=== PATIENT | male | born 1975 | race Hispanic/Latino ===

== ENCOUNTER 2020-10-06 23:32 | Emergency (ER) | payer SELFPAY ==
[2020-10-07] MEDS ORDERED: Acetaminophen 500 MG TAB ONE (01:17)
[2020-10-07] MEDS ORDERED: Ibuprofen 200 MG TAB ONE (01:17)
== END 2020-10-07 01:22 | disposition home or self-care (01) ==
LOC: ERS 23:32
DX: K04.5 Chronic apical periodontitis (principal); M10.9 Gout, unspecified; I10 Essential (primary) hypertension; J45.909 Unspecified asthma, uncomplicated; E03.9 Hypothyroidism, unspecified; Z87.891 Personal history of nicotine dependence
CPT/HCPCS: 99282

== ENCOUNTER 2020-11-01 19:22 | Emergency (ER) | payer SELFPAY ==
[2020-11-01] MEDS ORDERED: Mag-Al 1200 mg/1200 mg/30 ML UDCUP ONE (21:08)
[2020-11-01] MEDS ORDERED: Lidocaine Viscous Sol 2% 15 ml UD Cup ONE (21:09)
== END 2020-11-01 21:25 | disposition home or self-care (01) ==
LOC: ERS 19:22
DX: K20.90 Esophagitis, unspecified without bleeding (principal); M10.9 Gout, unspecified; I10 Essential (primary) hypertension; J45.909 Unspecified asthma, uncomplicated; Z87.891 Personal history of nicotine dependence
CPT/HCPCS: 71046

== ENCOUNTER 2020-11-03 09:51 | Emergency (ER) | payer SELFPAY ==
[2020-11-03 14:36] LABS: ALT (SGPT) 19 U/L (8-55); AST (SGOT) 32 U/L (5-34); Alkaline Phosphatase 89 U/L (40-110); Anion Gap 15 mmol/L (10-20); BUN (Urea Nitrogen) 7 mg/dL (8.9-20.6); Bilirubin, Total 0.7 mg/dL (0.2-1.2); Calc. Creatinine Clearance 0 mL/min (70-130); Calcium 9.1 mg/dL (7.8-10.44); Carbon Dioxide 27 mmol/L (22-29); Chloride 99 mmol/L (98-107); Globulin 4.7 g/dL (2.4-3.5); Glucose 110 mg/dL (70-105); Potassium 4.4 mmol/L (3.5-5.1); Protein, Total 8.7 g/dL (6.0-8.3); Sodium 137 mmol/L (136-145); Thyroid Stimulating Hormone 2.2091 uIU/mL (0.35-4.94)
[2020-11-03 15:16] LABS: #Eosinphils 0.3 thou/uL (0.0-0.7); #Lymphocytes 1.3 thou/uL (1.20-3.40); #Monocytes 0.5 thou/uL (0.11-0.59); #Neutrophils 2.8 thou/uL (1.40-6.50); %Basophils 0.3 % (0.0-1.0); %Eosinophils 5.6 % (0.0-10.0); %Lymphocytes 26.5 % (21.0-51.0); %Monocytes 10.4 % (0.0-10.0); %Neutrophils 57.2 % (42.0-75.0); Hemoglobin 13.8 g/dL (14.0-18.0); Mean Corpuscular HGB CONC 33.2 g/dL (32.0-36.0); Mean Corpuscular Hemoglobin 29.3 pg (27.0-31.0); Mean Corpuscular Volume 88.1 fL (78.0-98.0); Mean Platelet Volume 7.8 fL (7.4-10.4); Platelet Count 222 thou/uL (130-400); RBC Distribution Width 12.9 % (11.5-14.5); Red Blood Cell (RBC) Count 4.71 mill/uL (4.70-6.10); White Blood Cell (WBC) Count 4.9 thou/uL (4.8-10.8)
== END 2020-11-03 14:21 | disposition home or self-care (01) ==
LOC: ERS 09:51
DX: R22.1 Localized swelling, mass and lump, neck (principal)
CPT/HCPCS: 80053; 84443; 84481; 85025; 99283

== ENCOUNTER 2020-11-10 15:08 | Outpatient (CLI) | payer OTHER | END 2020-11-10 15:09 | disposition home or self-care (01) | LOC: BICULT 15:08 | PROVIDERS: ATTEND Nurse Practitioner Family | DX: E07.9 Disorder of thyroid, unspecified (principal) | CPT/HCPCS: 76536 ==

== ENCOUNTER 2021-03-25 11:35 | Inpatient (IN) | payer SELFPAY ==
[2021-03-25 13:02] LABS: #Eosinphils 0.3 thou/uL (0.0-0.7); #Monocytes 0.5 thou/uL (0.11-0.59); #Neutrophils 5.2 thou/uL (1.40-6.50); %Basophils 0.5 % (0.0-1.0); %Eosinophils 3.9 % (0.0-10.0); %Lymphocytes 24.4 % (21.0-51.0); %Monocytes 6.2 % (0.0-10.0); Mean Corpuscular Hemoglobin 26.2 pg (27.0-31.0); Mean Corpuscular Volume 84.7 fL (78.0-98.0); Mean Platelet Volume 7.1 fL (7.4-10.4); Platelet Count 283 thou/uL (130-400); RBC Distribution Width 12.8 % (11.5-14.5)
[2021-03-25 13:31] LABS: ALT (SGPT) Less than 7 U/L (8-55); AST (SGOT) 14 U/L (5-34); Albumin 3.6 g/dL (3.5-5.0); Alkaline Phosphatase 112 U/L (40-110); Anion Gap 11 mmol/L (10-20); BUN (Urea Nitrogen) 16 mg/dL (8.9-20.6); Bilirubin, Total 0.5 mg/dL (0.2-1.2); Calc. Creatinine Clearance 0 mL/min (70-130); Calcium 8.7 mg/dL (7.8-10.44); Carbon Dioxide 31 mmol/L (22-29); Chloride 104 mmol/L (98-107); Globulin 4.5 g/dL (2.4-3.5); Glucose 64 mg/dL (70-105); Lipase 17 U/L (8-78); Potassium 4.2 mmol/L (3.5-5.1); Protein, Total 8.1 g/dL (6.0-8.3); Sodium 142 mmol/L (136-145)
[2021-03-25] MEDS ORDERED: Ondansetron PF 4 MG/2 ML Vial ONE (14:00)
[2021-03-25 14:02] LABS: Bilirubin Negative (Negative); Blood, Urine Negative (Negative); Clarity Clear (Clear); Glucose, Urine (Dipstick) Normal (Negative); Ketone, Urine Negative (Negative); Leukocyte Negative Leu/uL (Negative); Nitrite Negative (Negative); Protein, Urine (Dipstick) Negative (Neg-Trace); Specific Gravity, Urine 1.003 (1.002-1.036); Urobilinogen Normal mg/dL (Less than 2)
[2021-03-25] MEDS ORDERED: hydrALAZINE 20 MG/ML VIAL ONE (18:04)
[2021-03-25] MEDS ORDERED: Acetaminophen 325 MG TAB PO PRN (19:30)
[2021-03-25] MEDS ORDERED: Ondansetron PF 4 MG/2 ML Vial IVP PRN (19:30)
[2021-03-25] MEDS ORDERED: Ondansetron ODT 4 MG TAB SL PRN (19:30)
[2021-03-25 19:33] VITALS: BMI 38.6
[2021-03-25] MEDS ORDERED: HYDROcodone/Acetaminophen 5/325 mg Tablet PO PRN (20:37)
[2021-03-25] MEDS ORDERED: hydrALAZINE 20 MG/ML VIAL SLOW IVP PRN (20:38)
[2021-03-25] MEDS: Sodium Chloride 0.9% 1,000 ML IV SCH ×2 (22:19→22:20)
[2021-03-26] MEDS: Sodium Chloride 0.9% 1,000 ML IV SCH ×2 (04:54→11:48)
[2021-03-26 06:45] LABS: #Eosinphils 0.3 thou/uL (0.0-0.7); #Lymphocytes 1.8 thou/uL (1.20-3.40); #Monocytes 0.5 thou/uL (0.11-0.59); #Neutrophils 5.1 thou/uL (1.40-6.50); %Basophils 0.3 % (0.0-1.0); %Eosinophils 4.2 % (0.0-10.0); %Lymphocytes 23.1 % (21.0-51.0); %Monocytes 6.1 % (0.0-10.0); %Neutrophils 66.4 % (42.0-75.0); Hemoglobin 10.7 g/dL (14.0-18.0); Mean Corpuscular HGB CONC 32.3 g/dL (32.0-36.0); Mean Corpuscular Hemoglobin 27.5 pg (27.0-31.0); Mean Platelet Volume 7.4 fL (7.4-10.4); Platelet Count 254 thou/uL (130-400); RBC Distribution Width 12.9 % (11.5-14.5); Red Blood Cell (RBC) Count 3.91 mill/uL (4.70-6.10); White Blood Cell (WBC) Count 7.7 thou/uL (4.8-10.8)
[2021-03-26 06:49] LABS: INR-International Normal Ratio 1.1; Prothrombin Time 14.5 sec (12.0-14.7)
[2021-03-26 07:00] LABS: Anion Gap 13 mmol/L (10-20); BUN (Urea Nitrogen) 17 mg/dL (8.9-20.6); Calc. Creatinine Clearance 49 mL/min (70-130); Calcium 8.5 mg/dL (7.8-10.44); Carbon Dioxide 28 mmol/L (22-29); Chloride 108 mmol/L (98-107); Glucose 107 mg/dL (70-105); Potassium 4.7 mmol/L (3.5-5.1); Sodium 144 mmol/L (136-145)
[2021-03-26 11:35] VITALS: BP 157/98; TEMP 97.3
== END 2021-03-26 15:35 | disposition left against medical advice (07) | DRG 841 ==
LOC: ERS 11:35 → SURG B 17:25
PROVIDERS: ADMIT Internal Medicine; ATTEND Internal Medicine
DX: C85.92 Non-Hodgkin lymphoma, unspecified, intrathoracic lymph nodes (principal); N17.9 Acute kidney failure, unspecified; N13.30 Unspecified hydronephrosis; C85.93 Non-Hodgkin lymphoma, unspecified, intra-abdominal lymph nodes; M10.9 Gout, unspecified; G47.33 Obstructive sleep apnea (adult) (pediatric); I95.9 Hypotension, unspecified; I10 Essential (primary) hypertension; E66.9 Obesity, unspecified; Z90.49 Acquired absence of other specified parts of digestive tract; Z68.38 Body mass index [BMI] 38.0-38.9, adult
CPT/HCPCS: 36415; 71275; 74174; 74176; 76705; 80048; 80053; 81003; 83690; 85025; 85610; 96374; 96375; J0360; J2405; J7050

== ENCOUNTER 2021-04-12 07:52 | Inpatient (IN) | payer OTHER, SELFPAY ==
[2021-04-12 08:29] LABS: #Eosinphils 0.3 thou/uL (0.0-0.7); #Lymphocytes 1.5 thou/uL (1.20-3.40); #Monocytes 0.4 thou/uL (0.11-0.59); #Neutrophils 5.2 thou/uL (1.40-6.50); %Eosinophils 4.4 % (0.0-10.0); %Lymphocytes 19.6 % (21.0-51.0); %Monocytes 5.5 % (0.0-10.0); %Neutrophils 70.4 % (42.0-75.0); Hemoglobin 8.9 g/dL (14.0-18.0); Mean Corpuscular HGB CONC 31.3 g/dL (32.0-36.0); Mean Corpuscular Hemoglobin 26.7 pg (27.0-31.0); Mean Corpuscular Volume 85.2 fL (78.0-98.0); Mean Platelet Volume 6.8 fL (7.4-10.4); Platelet Count 279 thou/uL (130-400); RBC Distribution Width 14.2 % (11.5-14.5); Red Blood Cell (RBC) Count 3.32 mill/uL (4.70-6.10); White Blood Cell (WBC) Count 7.4 thou/uL (4.8-10.8)
[2021-04-12] MEDS ORDERED: Heparin 10,000 UNITS/ 10 ML VIAL ONE (08:44)
[2021-04-12 08:50] LABS: ALT (SGPT) Less than 7 U/L (8-55); AST (SGOT) 13 U/L (5-34); Albumin 3.4 g/dL (3.5-5.0); Alkaline Phosphatase 79 U/L (40-110); Anion Gap 16 mmol/L (10-20); BUN (Urea Nitrogen) 78 mg/dL (8.9-20.6); Bilirubin, Total 0.5 mg/dL (0.2-1.2); Calc. Creatinine Clearance 0 mL/min (70-130); Calcium 8.5 mg/dL (7.8-10.44); Carbon Dioxide 21 mmol/L (22-29); Chloride 105 mmol/L (98-107); Globulin 4.1 g/dL (2.4-3.5); Glucose 87 mg/dL (70-105); Lipase 25 U/L (8-78); Protein, Total 7.5 g/dL (6.0-8.3); Sodium 135 mmol/L (136-145)
[2021-04-12] MEDS ORDERED: Dextrose 50% Abboject 50 ML SYRINGE ONE (09:07)
[2021-04-12] MEDS ORDERED: Morphine 4 MG/ML VIAL ONE (09:07)
[2021-04-12] MEDS ORDERED: Ondansetron PF 4 MG/2 ML Vial ONE (09:07)
[2021-04-12] MEDS ORDERED: Sodium Bicarbonate 2.5 MEQ/5 ML VIAL ONE (09:12)
[2021-04-12 09:42] LABS: Phosphorus 7.5 mg/dL (2.3-4.7)
[2021-04-12 09:45] LABS: Magnesium 2.7 mg/dL (1.6-2.6)
[2021-04-12] MEDS ORDERED: Calcium Gluc 4.6 MEQ/10 ML (100 MG/ML) ONE ×2 (09:46→09:49)
[2021-04-12] MEDS ORDERED: Insulin Regular 300 UNITS/3 ML VIAL ONE ×2 (09:46→09:48)
[2021-04-12] MEDS ORDERED: Albuterol 200 PUFF (6.7GM INHALER) ONE (10:58)
[2021-04-12] MEDS ORDERED: Albuterol Sulfate 1.25 MG/3 ML NEB ONE (11:10)
[2021-04-12] MEDS ORDERED: Albuterol Sulfate 2.5 mg/0.5 ml Neb ONE (11:10)
[2021-04-12 11:11] LABS: HBSAg Index 0.26 S/CO (0-0.99); Hep B Surf Ag Non-Reactive S/CO (NonReactive)
[2021-04-12 11:12] LABS: Hep B Core Total Ab Non-Reactive (NonReactive); Hep B Core Total Index 0.09 S/CO (0-0.79); Hep B Surf Ag Non-Reactive S/CO (NonReactive); Hep C IgG Ab Non-Reactive (NonReactive)
[2021-04-12 11:31] LABS: HBSAB Concentration 209.09 mIU/mL; Hep B Surf AB Reactive (NonReactive)
[2021-04-12] MEDS ORDERED: Acetaminophen 325 MG TAB PO PRN (11:31)
[2021-04-12] MEDS ORDERED: FLU VACC QS2021-22(6MOS UP)/PF 60 MCG/0.5 ML SYRINGE IM ONE (14:15)
[2021-04-12] MEDS: Heparin 5,000 UNITS/ML VIAL SC SCH ×2 (15:33→20:51)
[2021-04-12 16:34] LABS: Bacteria/HPF None Seen HPF (None Seen); Bilirubin Negative (Negative); Blood, Urine Trace (Negative); Clarity Clear (Clear); Glucose, Urine (Dipstick) Normal (Negative); Ketone, Urine Negative (Negative); Leukocyte Negative Leu/uL (Negative); Nitrite Negative (Negative); Protein, Urine (Dipstick) 10 mg/dL (Neg-Trace); RBC/HPF None Seen HPF (0-3); Specific Gravity, Urine 1.007 (1.002-1.036); Squamous Epithelial 0-3 HPF (0-3); Urobilinogen Normal mg/dL (Less than 2); WBC/HPF 0-3 HPF (0-3); pH, Urine 5.5 (5.0-9.0)
[2021-04-12 16:35] LABS: Urine Culture Reflex No No
[2021-04-12 16:54] LABS: Creatinine, Urine 72.95 mg/dL (63-166)
[2021-04-12 20:36] LABS: SARS-CoV-2 NAA Rapid Test Not Detected (NotDetected)
[2021-04-13 04:08] LABS: #Eosinphils 0.3 thou/uL (0.0-0.7); #Lymphocytes 1.5 thou/uL (1.20-3.40); #Monocytes 0.5 thou/uL (0.11-0.59); #Neutrophils 4.4 thou/uL (1.40-6.50); %Basophils 0.2 % (0.0-1.0); %Eosinophils 3.8 % (0.0-10.0); %Lymphocytes 22.4 % (21.0-51.0); %Monocytes 7.3 % (0.0-10.0); %Neutrophils 66.2 % (42.0-75.0); Hemoglobin 8.1 g/dL (14.0-18.0); Mean Corpuscular HGB CONC 31.7 g/dL (32.0-36.0); Mean Corpuscular Hemoglobin 27.4 pg (27.0-31.0); Mean Corpuscular Volume 86.4 fL (78.0-98.0); Mean Platelet Volume 7.1 fL (7.4-10.4); Platelet Count 219 thou/uL (130-400); RBC Distribution Width 14.1 % (11.5-14.5); Red Blood Cell (RBC) Count 2.94 mill/uL (4.70-6.10); White Blood Cell (WBC) Count 6.7 thou/uL (4.8-10.8)
[2021-04-13 04:32] LABS: ALT (SGPT) Less than 7 U/L (8-55); AST (SGOT) 13 U/L (5-34); Albumin 3.2 g/dL (3.5-5.0); Alkaline Phosphatase 79 U/L (40-110); Anion Gap 16 mmol/L (10-20); BUN (Urea Nitrogen) 64 mg/dL (8.9-20.6); Bilirubin, Total 0.5 mg/dL (0.2-1.2); Calc. Creatinine Clearance 12 mL/min (70-130); Calcium 8.1 mg/dL (7.8-10.44); Carbon Dioxide 24 mmol/L (22-29); Chloride 105 mmol/L (98-107); Globulin 3.8 g/dL (2.4-3.5); Glucose 85 mg/dL (70-105); Sodium 138 mmol/L (136-145)
[2021-04-13 04:41] LABS: Potassium 6.6 mmol/L (3.5-5.1)
[2021-04-13] MEDS ORDERED: Calcium Gluc 4.6 MEQ/10 ML (100 MG/ML) SLOW IVP SCH (05:30)
[2021-04-13] MEDS ORDERED: Dextrose 50% Abboject 50 ML SYRINGE SLOW IVP SCH (05:30)
[2021-04-13] MEDS ORDERED: Insulin Regular 300 UNITS/3 ML VIAL IVP SCH (05:30)
[2021-04-13] MEDS: Heparin 5,000 UNITS/ML VIAL SC SCH ×3 (08:06→21:37)
[2021-04-13] MEDS ORDERED: Heparin 10,000 UNITS/ 10 ML VIAL ONE (09:06)
[2021-04-13] MEDS ORDERED: Allopurinol 100 MG TAB PO SCH (15:30)
[2021-04-13] MEDS: Sevelamer Carbonate 800 MG TAB PO SCH (16:58)
[2021-04-14 04:34] LABS: Hemoglobin 8.2 g/dL (14.0-18.0); Mean Corpuscular HGB CONC 31.9 g/dL (32.0-36.0); Mean Corpuscular Hemoglobin 27.4 pg (27.0-31.0); Mean Platelet Volume 7.1 fL (7.4-10.4); Platelet Count 210 thou/uL (130-400); White Blood Cell (WBC) Count 6.1 thou/uL (4.8-10.8)
[2021-04-14 04:54] LABS: Anion Gap 14 mmol/L (10-20); BUN (Urea Nitrogen) 47 mg/dL (8.9-20.6); BUN/Creatinine Ratio 3.67; Calc. Creatinine Clearance 14 mL/min (70-130); Calcium 8.2 mg/dL (7.8-10.44); Carbon Dioxide 25 mmol/L (22-29); Chloride 103 mmol/L (98-107); Glucose 83 mg/dL (70-105); Iron 25 ug/dL (65-175); Iron Binding Capacity, Total 191 mcg/dL (261-462); Phosphorus 7.1 mg/dL (2.3-4.7); Potassium 5.3 mmol/L (3.5-5.1); Sodium 137 mmol/L (136-145)
[2021-04-14] MEDS: Sevelamer Carbonate 800 MG TAB PO SCH ×3 (07:53→17:26)
[2021-04-14] MEDS: Allopurinol 100 MG TAB PO SCH (07:53)
[2021-04-14] MEDS: Heparin 5,000 UNITS/ML VIAL SC SCH ×2 (07:53→12:52)
[2021-04-14] MEDS ORDERED: Heparin 10,000 UNITS/ 10 ML VIAL ONE (09:06)
[2021-04-14] MEDS: Iron, Sodium Ferric Gluconate 250 MG in Sodium Chloride 0.9% 250 ML 250 ML IVPB SCH (10:40)
[2021-04-15 05:25] LABS: Albumin 3.1 g/dL (3.5-5.0); Anion Gap 14 mmol/L (10-20); BUN (Urea Nitrogen) 28 mg/dL (8.9-20.6); BUN/Creatinine Ratio 2.82; Calc. Creatinine Clearance 17 mL/min (70-130); Calcium 8.3 mg/dL (7.8-10.44); Carbon Dioxide 27 mmol/L (22-29); Chloride 100 mmol/L (98-107); Glucose 86 mg/dL (70-105); Potassium 4.6 mmol/L (3.5-5.1); Sodium 136 mmol/L (136-145)
[2021-04-15 08:30] LABS: #Eosinphils 0.3 thou/uL (0.0-0.7); #Lymphocytes 1.1 thou/uL (1.20-3.40); #Monocytes 0.3 thou/uL (0.11-0.59); %Basophils 0.3 % (0.0-1.0); %Eosinophils 5.6 % (0.0-10.0); %Lymphocytes 19.4 % (21.0-51.0); %Monocytes 5.7 % (0.0-10.0); %Neutrophils 68.9 % (42.0-75.0); Hemoglobin 8.7 g/dL (14.0-18.0); Mean Corpuscular Hemoglobin 27.4 pg (27.0-31.0); Mean Corpuscular Volume 85.6 fL (78.0-98.0); Mean Platelet Volume 6.8 fL (7.4-10.4); Platelet Count 189 thou/uL (130-400); RBC Distribution Width 14.3 % (11.5-14.5); Red Blood Cell (RBC) Count 3.18 mill/uL (4.70-6.10); White Blood Cell (WBC) Count 5.8 thou/uL (4.8-10.8)
[2021-04-15 08:32] LABS: INR-International Normal Ratio 1.1; Prothrombin Time 14.4 sec (12.0-14.7)
[2021-04-15 08:33] LABS: PTT 46.7 sec (22.9-36.1)
[2021-04-15] MEDS: Sevelamer Carbonate 800 MG TAB PO SCH ×3 (08:45→18:11)
[2021-04-15] MEDS: Allopurinol 100 MG TAB PO SCH (08:46)
[2021-04-15] MEDS: Iron, Sodium Ferric Gluconate 250 MG in Sodium Chloride 0.9% 250 ML 250 ML IVPB SCH ×2 (09:25→18:11)
[2021-04-15] MEDS ORDERED: Fentanyl 250 MCG/5 ML VIAL ONE (13:22)
[2021-04-15] MEDS ORDERED: Ketamine 50 MG/ML (10ML VIAL) ONE (14:08)
[2021-04-15] MEDS ORDERED: SUGAMMADEX SODIUM 200 MG/2 ML VIAL ONE (14:09)
[2021-04-15] MEDS ORDERED: Midazolam HCl 2 mg/2 ml Vial ONE (14:09)
[2021-04-15] MEDS ORDERED: PROPOFOL 200 MG/20 ML VIAL ONE (14:11)
[2021-04-15] MEDS ORDERED: Lidocaine 1% PF 5 ML VIAL ONE (14:11)
[2021-04-15] MEDS ORDERED: Glycopyrrolate 0.2 MG/ML 5 ML SYRINGE ONE (14:11)
[2021-04-15] MEDS ORDERED: PHENYLEPHRINE-NS 100 MCG/ML 10 ML SYRINGE ONE (14:11)
[2021-04-15] MEDS ORDERED: Ondansetron HCl/PF 4 MG/2 ML Vial IVP PRN (15:34)
[2021-04-15] MEDS ORDERED: Promethazine HCl 25 MG/ML VIAL IVPB PRN (15:34)
[2021-04-15] MEDS ORDERED: Promethazine HCl 25 MG/ML VIAL IM PRN (15:34)
[2021-04-15] MEDS ORDERED: Fentanyl 100 MCG/2 ML VIAL ONE (15:53)
[2021-04-15] MEDS ORDERED: Labetalol HCl 100 MG/20 ML VIAL ONE (15:59)
[2021-04-15] MEDS ORDERED: hydrALAZINE 20 MG/ML VIAL ONE (16:30)
[2021-04-16 05:53] LABS: Albumin 3.4 g/dL (3.5-5.0); Anion Gap 16 mmol/L (10-20); BUN (Urea Nitrogen) 34 mg/dL (8.9-20.6); BUN/Creatinine Ratio 3.11; Calc. Creatinine Clearance 16 mL/min (70-130); Carbon Dioxide 27 mmol/L (22-29); Chloride 104 mmol/L (98-107); Glucose 97 mg/dL (70-105); Phosphorus 6.2 mg/dL (2.3-4.7); Potassium 4.6 mmol/L (3.5-5.1); Sodium 142 mmol/L (136-145)
[2021-04-16 08:16] LABS: HBSAg Index 0.17 S/CO (0-0.99); Hep B Core Total Ab Non-Reactive (NonReactive); Hep B Surf Ag Non-Reactive S/CO (NonReactive); Hep C IgG Ab Non-Reactive (NonReactive); Hep C Index 0.09 S/CO (0-0.79)
[2021-04-16 08:33] LABS: HBSAB Concentration 160.48 mIU/mL; Hep B Surf AB Reactive (NonReactive)
[2021-04-16] MEDS: Allopurinol 100 MG TAB PO SCH (09:41)
[2021-04-16] MEDS: Sevelamer Carbonate 800 MG TAB PO SCH ×3 (09:41→17:10)
[2021-04-16] MEDS ORDERED: Heparin 10,000 UNITS/ 10 ML VIAL ONE (10:45)
[2021-04-16] MEDS: Iron, Sodium Ferric Gluconate 250 MG in Sodium Chloride 0.9% 250 ML 250 ML IVPB SCH (12:34)
[2021-04-16] MEDS ORDERED: Iothalamate Meglumine 60% 50 ML VIAL FS ONE (16:41)
[2021-04-16] MEDS ORDERED: Fentanyl 100 MCG/2 ML VIAL ONE (21:05)
[2021-04-16] MEDS ORDERED: Succinylcholine 200 MG/10 ml SYRINGE FS ONE (21:15)
[2021-04-16] MEDS ORDERED: Ondansetron PF 4 MG/2 ML Vial ONE (21:15)
[2021-04-16] MEDS ORDERED: Rocuronium Bromide 10 MG/ML (10ML VIAL) ONE (21:15)
[2021-04-16] MEDS ORDERED: PROPOFOL 200 MG/20 ML VIAL ONE (21:15)
[2021-04-16] MEDS ORDERED: Dexamethasone 20 MG/5 ML VIAL ONE (21:15)
[2021-04-16] MEDS ORDERED: Lidocaine 1% PF 5 ML VIAL ONE (21:15)
[2021-04-16] MEDS ORDERED: PHENYLEPHRINE-NS 100 MCG/ML 10 ML SYRINGE ONE (21:15)
[2021-04-16] MEDS ORDERED: Esmolol 100 MG/10 ML VIAL ONE (21:15)
[2021-04-16] MEDS ORDERED: Levofloxacin 500 mg/D5W 100 ml Premix Bag ONE (21:29)
[2021-04-16] MEDS ORDERED: B & O 30 MG SUPP ONE (21:55)
[2021-04-16] MEDS ORDERED: Labetalol HCl 100 MG/20 ML VIAL ONE (22:11)
[2021-04-16] MEDS ORDERED: Ondansetron HCl/PF 4 MG/2 ML Vial IVP PRN (22:13)
[2021-04-16] MEDS ORDERED: Promethazine HCl 25 MG/ML VIAL IVPB PRN (22:13)
[2021-04-16] MEDS ORDERED: Promethazine HCl 25 MG/ML VIAL IM PRN (22:13)
[2021-04-17] MEDS: hydrALAZINE 20 MG/ML VIAL SLOW IVP PRN ×2 (01:17→22:19)
[2021-04-17] MEDS ORDERED: HYDROcodone/Acetaminophen 10/325 mg Tablet PO PRN (01:27)
[2021-04-17] MEDS ORDERED: HYDROcodone/Acetaminophen 5/325 mg Tablet PO PRN (01:27)
[2021-04-17 06:22] LABS: Albumin 3.8 g/dL (3.5-5.0); Anion Gap 17 mmol/L (10-20); BUN (Urea Nitrogen) 24 mg/dL (8.9-20.6); BUN/Creatinine Ratio 3.99; Calc. Creatinine Clearance 29 mL/min (70-130); Calcium 9.7 mg/dL (7.8-10.44); Carbon Dioxide 23 mmol/L (22-29); Chloride 106 mmol/L (98-107); Glucose 118 mg/dL (70-105); Phosphorus 3.5 mg/dL (2.3-4.7); Potassium 5.2 mmol/L (3.5-5.1); Sodium 141 mmol/L (136-145)
[2021-04-17] MEDS: Sevelamer Carbonate 800 MG TAB PO SCH ×3 (08:48→16:43)
[2021-04-17] MEDS: Allopurinol 100 MG TAB PO SCH (08:48)
[2021-04-17] MEDS: Ondansetron PF 4 MG/2 ML Vial IVP PRN ×2 (08:54→16:42)
[2021-04-17] MEDS ORDERED: Polyethylene Glycol 3350 17 GM Packet PO SCH (09:00)
[2021-04-17] MEDS: Senokot S 8.6-50 MG TAB PO SCH ×2 (09:58→22:20)
[2021-04-17] MEDS ORDERED: Amlodipine 5 MG TAB PO SCH (14:30)
[2021-04-17 16:54] LABS: Anion Gap 17 mmol/L (10-20); BUN (Urea Nitrogen) 27 mg/dL (8.9-20.6); Calc. Creatinine Clearance 29 mL/min (70-130); Calcium 9.6 mg/dL (7.8-10.44); Carbon Dioxide 25 mmol/L (22-29); Chloride 106 mmol/L (98-107); Glucose 97 mg/dL (70-105); Potassium 4.5 mmol/L (3.5-5.1); Sodium 143 mmol/L (136-145)
[2021-04-18] MEDS: Ondansetron PF 4 MG/2 ML Vial IVP PRN (03:45)
[2021-04-18] MEDS ORDERED: Sodium Chloride 0.9% 1,000 ML IV SCH (06:30)
[2021-04-18] MEDS: Amlodipine 10 MG TAB PO SCH (08:55)
[2021-04-18] MEDS: Senokot S 8.6-50 MG TAB PO SCH ×2 (08:55→20:09)
[2021-04-18] MEDS: Allopurinol 100 MG TAB PO SCH (08:55)
[2021-04-18] MEDS: Carvedilol 3.125 MG TAB PO SCH ×2 (08:55→17:48)
[2021-04-18] MEDS: Sevelamer Carbonate 800 MG TAB PO SCH ×2 (08:56→11:59)
[2021-04-18 11:00] LABS: Hemoglobin 10.5 g/dL (14.0-18.0); Mean Corpuscular HGB CONC 31.3 g/dL (32.0-36.0); Mean Corpuscular Hemoglobin 27.5 pg (27.0-31.0); Platelet Count 228 thou/uL (130-400); RBC Distribution Width 14.8 % (11.5-14.5); Red Blood Cell (RBC) Count 3.81 mill/uL (4.70-6.10); White Blood Cell (WBC) Count 8.2 thou/uL (4.8-10.8)
[2021-04-18 14:40] LABS: Albumin 3.8 g/dL (3.5-5.0); Anion Gap 13 mmol/L (10-20); BUN (Urea Nitrogen) 29 mg/dL (8.9-20.6); Calc. Creatinine Clearance 32 mL/min (70-130); Calcium 9.7 mg/dL (7.8-10.44); Carbon Dioxide 28 mmol/L (22-29); Chloride 104 mmol/L (98-107); Glucose 98 mg/dL (70-105); Phosphorus 3.8 mg/dL (2.3-4.7); Potassium 4.1 mmol/L (3.5-5.1); Sodium 141 mmol/L (136-145)
[2021-04-18 14:56] LABS: Chloride 104 mmol/L (98-107); Potassium 4.3 mmol/L (3.5-5.1); Sodium 143 mmol/L (136-145)
[2021-04-18 14:57] LABS: Calcium 9.7 mg/dL (7.8-10.44); Glucose 109 mg/dL (70-105)
[2021-04-18 14:59] LABS: Anion Gap 16 mmol/L (10-20); Carbon Dioxide 27 mmol/L (22-29)
[2021-04-18 15:00] LABS: Calc. Creatinine Clearance 32 mL/min (70-130); Phosphorus 4.3 mg/dL (2.3-4.7)
[2021-04-18 15:01] LABS: BUN (Urea Nitrogen) 29 mg/dL (8.9-20.6); BUN/Creatinine Ratio 5.85
[2021-04-18 18:48] LABS: Anion Gap 14 mmol/L (10-20); BUN (Urea Nitrogen) 32 mg/dL (8.9-20.6); Calc. Creatinine Clearance 35 mL/min (70-130); Calcium 9.3 mg/dL (7.8-10.44); Carbon Dioxide 26 mmol/L (22-29); Chloride 103 mmol/L (98-107); Glucose 85 mg/dL (70-105); Potassium 4.1 mmol/L (3.5-5.1); Sodium 139 mmol/L (136-145)
[2021-04-19] MEDS: Polyethylene Glycol 3350 17 GM Packet PO PRN (08:35)
[2021-04-19] MEDS: Allopurinol 100 MG TAB PO SCH (08:35)
[2021-04-19] MEDS: Senokot S 8.6-50 MG TAB PO SCH ×2 (08:35→20:10)
[2021-04-19] MEDS: Amlodipine 10 MG TAB PO SCH (08:36)
[2021-04-19] MEDS: Carvedilol 3.125 MG TAB PO SCH ×2 (08:36→17:12)
[2021-04-19 10:51] LABS: Albumin 3.7 g/dL (3.5-5.0); Anion Gap 12 mmol/L (10-20); BUN (Urea Nitrogen) 30 mg/dL (8.9-20.6); BUN/Creatinine Ratio 7.65; Calc. Creatinine Clearance 40 mL/min (70-130); Calcium 9.5 mg/dL (7.8-10.44); Carbon Dioxide 29 mmol/L (22-29); Chloride 101 mmol/L (98-107); Glucose 151 mg/dL (70-105); Phosphorus 3.8 mg/dL (2.3-4.7); Potassium 3.7 mmol/L (3.5-5.1); Sodium 138 mmol/L (136-145)
[2021-04-19 11:13] LABS: Fungus Stain Final report (.)
[2021-04-19 13:13] LABS: Fungus Stain Final report (.)
[2021-04-20 06:11] LABS: #Eosinphils 0.5 thou/uL (0.0-0.7); #Lymphocytes 2.1 thou/uL (1.20-3.40); #Monocytes 0.6 thou/uL (0.11-0.59); #Neutrophils 5.3 thou/uL (1.40-6.50); %Basophils 0.2 % (0.0-1.0); %Eosinophils 5.4 % (0.0-10.0); %Lymphocytes 24.9 % (21.0-51.0); %Monocytes 7.5 % (0.0-10.0); Hemoglobin 10.7 g/dL (14.0-18.0); Mean Corpuscular HGB CONC 30.7 g/dL (32.0-36.0); Mean Corpuscular Hemoglobin 26.4 pg (27.0-31.0); Mean Corpuscular Volume 86.1 fL (78.0-98.0); Mean Platelet Volume 6.8 fL (7.4-10.4); Platelet Count 207 thou/uL (130-400); RBC Distribution Width 14.8 % (11.5-14.5); Red Blood Cell (RBC) Count 4.06 mill/uL (4.70-6.10); White Blood Cell (WBC) Count 8.5 thou/uL (4.8-10.8)
[2021-04-20 06:35] LABS: Albumin 3.9 g/dL (3.5-5.0); Anion Gap 15 mmol/L (10-20); BUN (Urea Nitrogen) 32 mg/dL (8.9-20.6); BUN/Creatinine Ratio 9.47; Calc. Creatinine Clearance 46 mL/min (70-130); Calcium 9.2 mg/dL (7.8-10.44); Carbon Dioxide 28 mmol/L (22-29); Chloride 100 mmol/L (98-107); Glucose 126 mg/dL (70-105); Phosphorus 3.3 mg/dL (2.3-4.7); Potassium 3.8 mmol/L (3.5-5.1); Sodium 139 mmol/L (136-145)
[2021-04-20] MEDS: Senokot S 8.6-50 MG TAB PO SCH ×2 (08:37→20:24)
[2021-04-20] MEDS: Amlodipine 10 MG TAB PO SCH (08:37)
[2021-04-20] MEDS: Allopurinol 100 MG TAB PO SCH (08:37)
[2021-04-20] MEDS: Polyethylene Glycol 3350 17 GM Packet PO PRN (08:40)
[2021-04-20] MEDS: Carvedilol 3.125 MG TAB PO SCH ×2 (08:40→16:49)
[2021-04-20] MEDS ORDERED: Bisacodyl 10 MG SUPP PR PRN (12:05)
[2021-04-20 14:50] LABS: SARS-CoV-2 PCR by NAA Not Detected (NotDetected)
[2021-04-21 06:37] LABS: Albumin 3.8 g/dL (3.5-5.0); Anion Gap 12 mmol/L (10-20); BUN (Urea Nitrogen) 31 mg/dL (8.9-20.6); BUN/Creatinine Ratio 11.27; Calc. Creatinine Clearance 57 mL/min (70-130); Calcium 9.3 mg/dL (7.8-10.44); Carbon Dioxide 29 mmol/L (22-29); Chloride 100 mmol/L (98-107); Glucose 118 mg/dL (70-105); Phosphorus 3.5 mg/dL (2.3-4.7); Potassium 3.9 mmol/L (3.5-5.1); Sodium 137 mmol/L (136-145)
[2021-04-21] MEDS: Amlodipine 10 MG TAB PO SCH (08:37)
[2021-04-21] MEDS: Senokot S 8.6-50 MG TAB PO SCH ×2 (08:37→20:04)
[2021-04-21] MEDS: Allopurinol 100 MG TAB PO SCH (08:37)
[2021-04-21] MEDS: Carvedilol 3.125 MG TAB PO SCH ×2 (08:37→16:52)
[2021-04-21 11:44] VITALS: BMI 35.9
[2021-04-21] MEDS: Polyethylene Glycol 3350 17 GM Packet PO PRN (20:04)
[2021-04-22 06:34] LABS: #Basophils 0.1 thou/uL (0.0-0.2); #Eosinphils 0.5 thou/uL (0.0-0.7); #Lymphocytes 2.1 thou/uL (1.20-3.40); #Monocytes 0.7 thou/uL (0.11-0.59); #Neutrophils 4.9 thou/uL (1.40-6.50); %Basophils 0.9 % (0.0-1.0); %Eosinophils 5.5 % (0.0-10.0); %Lymphocytes 26.1 % (21.0-51.0); %Monocytes 8.3 % (0.0-10.0); %Neutrophils 59.2 % (42.0-75.0); Hemoglobin 10.2 g/dL (14.0-18.0); Mean Corpuscular HGB CONC 32.4 g/dL (32.0-36.0); Mean Corpuscular Hemoglobin 27.4 pg (27.0-31.0); Mean Corpuscular Volume 84.5 fL (78.0-98.0); Mean Platelet Volume 7.4 fL (7.4-10.4); Platelet Count 222 thou/uL (130-400); RBC Distribution Width 14.8 % (11.5-14.5); Red Blood Cell (RBC) Count 3.72 mill/uL (4.70-6.10); White Blood Cell (WBC) Count 8.2 thou/uL (4.8-10.8)
[2021-04-22 06:52] LABS: Albumin 3.6 g/dL (3.5-5.0); Anion Gap 14 mmol/L (10-20); BUN (Urea Nitrogen) 30 mg/dL (8.9-20.6); Calc. Creatinine Clearance 63 mL/min (70-130); Calcium 9.4 mg/dL (7.8-10.44); Carbon Dioxide 27 mmol/L (22-29); Chloride 98 mmol/L (98-107); Glucose 110 mg/dL (70-105); Phosphorus 3.2 mg/dL (2.3-4.7); Potassium 3.6 mmol/L (3.5-5.1); Sodium 135 mmol/L (136-145)
[2021-04-22] MEDS: Amlodipine 10 MG TAB PO SCH (08:31)
[2021-04-22] MEDS: Allopurinol 100 MG TAB PO SCH (08:31)
[2021-04-22] MEDS: Carvedilol 3.125 MG TAB PO SCH ×2 (08:31→16:14)
[2021-04-22] MEDS: Senokot S 8.6-50 MG TAB PO SCH ×2 (08:31→20:55)
[2021-04-22 16:13] LABS: Kappa Lambda Light Chain Ratio 2.18 (0.26-1.65); Kappa Light Chains 141.8 mg/L (3.3-19.4)
[2021-04-22 21:38] LABS: A/G Ratio 0.7 (0.7-1.7); Albumin 3.2 g/dL (2.9-4.4); Alpha 1 0.3 g/dL (0.0-0.4); Beta 1.4 g/dL (0.7-1.3); Gamma 2.2 g/dL (0.4-1.8); Globulin, Total 4.9 g/dL (2.2-3.9); M-Spike Not Observed g/dL (Not Observed)
[2021-04-23 07:08] LABS: Albumin 3.7 g/dL (3.5-5.0); Anion Gap 17 mmol/L (10-20); BUN (Urea Nitrogen) 26 mg/dL (8.9-20.6); BUN/Creatinine Ratio 11.11; Calc. Creatinine Clearance 67 mL/min (70-130); Calcium 9.1 mg/dL (7.8-10.44); Carbon Dioxide 26 mmol/L (22-29); Chloride 99 mmol/L (98-107); Glucose 110 mg/dL (70-105); Phosphorus 3.5 mg/dL (2.3-4.7); Potassium 3.9 mmol/L (3.5-5.1); Sodium 138 mmol/L (136-145)
[2021-04-23] MEDS: Senokot S 8.6-50 MG TAB PO SCH (07:39)
[2021-04-23] MEDS: Allopurinol 100 MG TAB PO SCH (07:39)
[2021-04-23] MEDS: Amlodipine 10 MG TAB PO SCH (07:39)
[2021-04-23] MEDS: Carvedilol 3.125 MG TAB PO SCH ×2 (07:39→15:25)
[2021-04-23 12:11] LABS: Beta-2-Microglobulin 5.9 mg/L (0.6-2.4)
[2021-04-23] MEDS ORDERED: Sodium Bicarbonate 2.5 MEQ/5 ML VIAL ONE (12:18)
[2021-04-23 14:14] LABS: IFE-Serum Interpretation Note: (.); IgA - Total IgA (Sendout) 491 mg/dL (90-386); Immunoglobulin - G (Sendout) 2079 mg/dL (603-1613); Immunoglobulin - M (Sendout) 132 mg/dL (20-172)
[2021-04-23 15:27] VITALS: BP 125/80; TEMP 97.8
[2021-05-13 12:40] LABS: Fungus Culture Final report (.)
[2021-05-13 12:40] LABS: Fungus Culture Final report (.)
== END 2021-04-23 15:38 | disposition home or self-care (01) | DRG 661 ==
LOC: ERS 07:52 → IMCU/EMU 12:56 → 2SW 04-14 19:23 → SURG B 04-17 21:12 → T4-A 04-20 17:23
PROVIDERS: ADMIT Internal Medicine; ATTEND Internal Medicine
PROC: 5A1D70Z Performance of Urinary Filtration, Intermittent, Less than 6 Hours Per Day (ICD-10-PCS; 2021-04-12)
PROC: 07D78ZX Extraction of Thorax Lymphatic, Via Natural or Artificial Opening Endoscopic, Diagnostic (ICD-10-PCS; principal; 2021-04-15)
PROC: 0B9J7ZX Drainage of Left Lower Lung Lobe, Via Natural or Artificial Opening, Diagnostic (ICD-10-PCS; 2021-04-15)
PROC: 0B9F7ZX Drainage of Right Lower Lung Lobe, Via Natural or Artificial Opening, Diagnostic (ICD-10-PCS; 2021-04-15)
PROC: 0T788DZ Dilation of Bilateral Ureters with Intraluminal Device, Via Natural or Artificial Opening Endoscopic (ICD-10-PCS; 2021-04-16)
PROC: BT141ZZ Fluoroscopy of Kidneys, Ureters and Bladder using Low Osmolar Contrast (ICD-10-PCS; 2021-04-16)
PROC: 07DR3ZX Extraction of Iliac Bone Marrow, Percutaneous Approach, Diagnostic (ICD-10-PCS; 2021-04-23)
DX: N17.9 Acute kidney failure, unspecified (principal); E87.5 Hyperkalemia; Z20.822 Contact with and (suspected) exposure to COVID-19; M10.9 Gout, unspecified; G47.33 Obstructive sleep apnea (adult) (pediatric); E83.39 Other disorders of phosphorus metabolism; N13.30 Unspecified hydronephrosis; R19.00 Intra-abdominal and pelvic swelling, mass and lump, unspecified site; R22.2 Localized swelling, mass and lump, trunk; F32.A Depression, unspecified; E66.9 Obesity, unspecified; D63.1 Anemia in chronic kidney disease; N18.9 Chronic kidney disease, unspecified; I12.9 Hypertensive chronic kidney disease with stage 1 through stage 4 chronic kidney disease, or unspecified chronic kidney disease; R59.1 Generalized enlarged lymph nodes; K59.00 Constipation, unspecified; Z88.8 Allergy status to other drugs, medicaments and biological substances; Z90.49 Acquired absence of other specified parts of digestive tract; Z87.891 Personal history of nicotine dependence; Z82.5 Family history of asthma and other chronic lower respiratory diseases; Z68.35 Body mass index [BMI] 35.0-35.9, adult; Z80.1 Family history of malignant neoplasm of trachea, bronchus and lung
CPT/HCPCS: 20225; 36415; 36556; 74176; 74420; 77012; 80053; 80069; 81001; 82232; 82550; 82570; 82728; 83540; 83550; 83690; 83735; 83883; 84100; 84156; 84165; 84300; 84540; 84550; 85025; 85027; 85097; 85610; 85730; 86334; 86704; 86706; 86803; 87070; 87102; 87116; 87205; 87206; 87340; 88112; 88121; 88173; 88184; 88237; 88305; 88311; 88313; 88341; 88342; 90935; 93005; 94660; 96374; 96375; C2617; G0257; J0360; J1100; J1644; J1815; J1956; J2001; J2250; J2270; J2405; J2704; J2916; J3010; J7050; J7611; Q9961; U0002; U0003; U0005

== ENCOUNTER 2021-05-06 12:17 | Outpatient (CLI) | payer OTHER | END 2021-05-06 12:18 | disposition home or self-care (01) | LOC: PET 12:17 | PROVIDERS: ATTEND Internal Medicine Hematology & Oncology | DX: R59.0 Localized enlarged lymph nodes (principal); C85.90 Non-Hodgkin lymphoma, unspecified, unspecified site; N13.5 Crossing vessel and stricture of ureter without hydronephrosis | CPT/HCPCS: 78815; A9552 ==

== ENCOUNTER 2021-05-13 10:03 | Inpatient (IN) | payer OTHER ==
[2021-05-13] MEDS ORDERED: Cefepime 2 GM VIAL ONE (10:32)
[2021-05-13] MEDS ORDERED: Vancomycin 1 GM/200 ML BAG ONE (10:32)
[2021-05-13 10:56] LABS: #Eosinphils 0.1 thou/uL (0.0-0.7); #Lymphocytes 1.3 thou/uL (1.20-3.40); #Monocytes 0.8 thou/uL (0.11-0.59); #Neutrophils 9.4 thou/uL (1.40-6.50); %Basophils 0.1 % (0.0-1.0); %Eosinophils 0.8 % (0.0-10.0); %Lymphocytes 11.4 % (21.0-51.0); %Monocytes 6.6 % (0.0-10.0); %Neutrophils 81.1 % (42.0-75.0); Hemoglobin 8.6 g/dL (14.0-18.0); Mean Corpuscular HGB CONC 33.5 g/dL (32.0-36.0); Mean Corpuscular Hemoglobin 28.8 pg (27.0-31.0); Mean Platelet Volume 7.3 fL (7.4-10.4); Platelet Count 215 thou/uL (130-400); RBC Distribution Width 15.7 % (11.5-14.5); Red Blood Cell (RBC) Count 2.99 mill/uL (4.70-6.10); White Blood Cell (WBC) Count 11.6 thou/uL (4.8-10.8)
[2021-05-13] MEDS ORDERED: VANCOMYCIN 1.75 GM/350 ML BAG 1.75 GM in Premix Bag 1 BAG IVPB SCH (11:00)
[2021-05-13 11:49] LABS: ALT (SGPT) 7 U/L (8-55); AST (SGOT) 15 U/L (5-34); Albumin 3.9 g/dL (3.5-5.0); Alkaline Phosphatase 97 U/L (40-110); Anion Gap 16 mmol/L (10-20); BUN (Urea Nitrogen) 32 mg/dL (8.9-20.6); Bilirubin, Total 1.3 mg/dL (0.2-1.2); Calc. Creatinine Clearance 0 mL/min (70-130); Calcium 9.1 mg/dL (7.8-10.44); Carbon Dioxide 24 mmol/L (22-29); Chloride 98 mmol/L (98-107); Globulin 4.1 g/dL (2.4-3.5); Glucose 131 mg/dL (70-105); Potassium 4.5 mmol/L (3.5-5.1); Sodium 133 mmol/L (136-145)
[2021-05-13 14:08] LABS: Bacteria/HPF 3+ HPF (None Seen); Bilirubin Negative (Negative); Blood, Urine 3+ (Negative); Clarity Turbid (Clear); Glucose, Urine (Dipstick) 50 mg/dL (Negative); Ketone, Urine Negative (Negative); Leukocyte 500 Leu/uL (Negative); Nitrite Negative (Negative); Protein, Urine (Dipstick) 300 mg/dL (Neg-Trace); RBC/HPF Greater than 50 HPF (0-3); Specific Gravity, Urine 1.014 (1.002-1.036); Squamous Epithelial 0-3 HPF (0-3); Urobilinogen Normal mg/dL (Less than 2); WBC/HPF Greater than 50 HPF (0-3)
[2021-05-13 14:20] LABS: SARS-CoV-2 NAA Rapid Test Not Detected (NotDetected)
[2021-05-13] MEDS ORDERED: Ondansetron PF 4 MG/2 ML Vial IVP PRN (16:36)
[2021-05-13] MEDS ORDERED: Carvedilol 3.125 MG TAB PO SCH (17:00)
[2021-05-13 17:03] VITALS: BMI 37.5
[2021-05-13] MEDS ORDERED: Vancomycin HCl 750 MG in Sodium Chloride 0.9% 250 ML 250 ML IVPB SCH (18:00)
[2021-05-13] MEDS: Acetaminophen 325 MG TAB PO PRN (18:10)
[2021-05-13] MEDS: Sodium Chloride 0.9% 1,000 ML IV SCH (18:13)
[2021-05-14] MEDS: Acetaminophen 325 MG TAB PO PRN ×3 (01:16→21:26)
[2021-05-14 05:02] LABS: #Eosinphils 0.2 thou/uL (0.0-0.7); #Lymphocytes 1.3 thou/uL (1.20-3.40); #Monocytes 0.8 thou/uL (0.11-0.59); #Neutrophils 6.9 thou/uL (1.40-6.50); %Basophils 0.2 % (0.0-1.0); %Eosinophils 1.9 % (0.0-10.0); %Monocytes 8.5 % (0.0-10.0); %Neutrophils 75.4 % (42.0-75.0); Hemoglobin 8.2 g/dL (14.0-18.0); Mean Corpuscular Hemoglobin 30.3 pg (27.0-31.0); Mean Corpuscular Volume 86.4 fL (78.0-98.0); Mean Platelet Volume 7.3 fL (7.4-10.4); Platelet Count 182 thou/uL (130-400); RBC Distribution Width 15.4 % (11.5-14.5); Red Blood Cell (RBC) Count 2.72 mill/uL (4.70-6.10); White Blood Cell (WBC) Count 9.1 thou/uL (4.8-10.8)
[2021-05-14] MEDS: Sodium Chloride 0.9% 1,000 ML IV SCH ×2 (05:21→16:03)
[2021-05-14 05:23] LABS: Anion Gap 13 mmol/L (10-20); BUN (Urea Nitrogen) 40 mg/dL (8.9-20.6); Calc. Creatinine Clearance 32 mL/min (70-130); Calcium 8.4 mg/dL (7.8-10.44); Carbon Dioxide 23 mmol/L (22-29); Chloride 102 mmol/L (98-107); Glucose 116 mg/dL (70-105); Potassium 4.5 mmol/L (3.5-5.1); Sodium 133 mmol/L (136-145)
[2021-05-14 06:42] LABS: CK (CPK) 65 U/L (30-200)
[2021-05-14 07:53] LABS: Complement-C4 33.5 mg/dL (15-53)
[2021-05-14] MEDS: Carvedilol 3.125 MG TAB PO SCH ×2 (09:12→16:03)
[2021-05-14] MEDS ORDERED: Cefepime 1 GM in Sodium Chloride 0.9% 100 ML IVPB SCH (10:00)
[2021-05-14 10:01] LABS: Vancomycin, Random 15.1 ug/mL (See Comment)
[2021-05-14] MEDS ORDERED: VANCOMYCIN 1.75 GM/350 ML BAG 1.75 GM in Premix Bag 1 BAG IVPB SCH (11:00)
[2021-05-14] MEDS: Tamsulosin HCl 0.4 MG CAP PO SCH (21:23)
[2021-05-14] MEDS: SODIUM CHLORIDE IVPB SCH (21:30)
[2021-05-14] MEDS: AMPICILLIN IVPB SCH (21:30)
[2021-05-14] MEDS: ADMIXTURE FEE IVPB SCH (21:30)
[2021-05-15] MEDS: Sodium Chloride 0.9% 1,000 ML IV SCH ×3 (02:53→14:53)
[2021-05-15] MEDS: Acetaminophen 325 MG TAB PO PRN ×3 (04:21→21:59)
[2021-05-15 05:34] LABS: #Eosinphils 0.2 thou/uL (0.0-0.7); #Lymphocytes 1.2 thou/uL (1.20-3.40); #Monocytes 0.6 thou/uL (0.11-0.59); #Neutrophils 5.8 thou/uL (1.40-6.50); %Basophils 0.4 % (0.0-1.0); %Eosinophils 3.2 % (0.0-10.0); %Lymphocytes 14.7 % (21.0-51.0); %Neutrophils 73.8 % (42.0-75.0); Hemoglobin 7.8 g/dL (14.0-18.0); Mean Corpuscular HGB CONC 34.4 g/dL (32.0-36.0); Mean Corpuscular Volume 87.1 fL (78.0-98.0); Mean Platelet Volume 7.2 fL (7.4-10.4); Platelet Count 180 thou/uL (130-400); RBC Distribution Width 15.2 % (11.5-14.5); Red Blood Cell (RBC) Count 2.61 mill/uL (4.70-6.10); White Blood Cell (WBC) Count 7.8 thou/uL (4.8-10.8)
[2021-05-15 05:49] LABS: Anion Gap 14 mmol/L (10-20); BUN (Urea Nitrogen) 34 mg/dL (8.9-20.6); Calc. Creatinine Clearance 47 mL/min (70-130); Calcium 8.5 mg/dL (7.8-10.44); Carbon Dioxide 22 mmol/L (22-29); Chloride 105 mmol/L (98-107); Glucose 104 mg/dL (70-105); Potassium 4.1 mmol/L (3.5-5.1); Sodium 137 mmol/L (136-145)
[2021-05-15] MEDS: SODIUM CHLORIDE IVPB SCH ×3 (06:06→22:02)
[2021-05-15] MEDS: ADMIXTURE FEE IVPB SCH ×3 (06:06→22:02)
[2021-05-15] MEDS: AMPICILLIN IVPB SCH ×3 (06:06→22:02)
[2021-05-15] MEDS: Finasteride 5 MG TAB PO SCH (08:16)
[2021-05-15] MEDS: Tamsulosin HCl 0.4 MG CAP PO SCH ×2 (08:16→22:00)
[2021-05-15] MEDS: Carvedilol 3.125 MG TAB PO SCH ×2 (08:16→17:46)
[2021-05-15 10:20] LABS: Vancomycin, Random 23.8 ug/mL (See Comment)
[2021-05-16] MEDS: Acetaminophen 325 MG TAB PO PRN ×3 (02:27→23:53)
[2021-05-16 04:56] LABS: #Eosinphils 0.1 thou/uL (0.0-0.7); #Lymphocytes 0.9 thou/uL (1.20-3.40); #Monocytes 0.7 thou/uL (0.11-0.59); #Neutrophils 5.5 thou/uL (1.40-6.50); %Basophils 0.5 % (0.0-1.0); %Eosinophils 1.8 % (0.0-10.0); %Lymphocytes 12.7 % (21.0-51.0); %Monocytes 9.3 % (0.0-10.0); %Neutrophils 75.7 % (42.0-75.0); Hemoglobin 7.2 g/dL (14.0-18.0); Mean Corpuscular HGB CONC 32.3 g/dL (32.0-36.0); Mean Corpuscular Hemoglobin 28.5 pg (27.0-31.0); Mean Corpuscular Volume 88.4 fL (78.0-98.0); Mean Platelet Volume 7.4 fL (7.4-10.4); Platelet Count 185 thou/uL (130-400); RBC Distribution Width 15.3 % (11.5-14.5); Red Blood Cell (RBC) Count 2.54 mill/uL (4.70-6.10); White Blood Cell (WBC) Count 7.3 thou/uL (4.8-10.8)
[2021-05-16] MEDS: ADMIXTURE FEE IVPB SCH ×4 (05:21→23:54)
[2021-05-16] MEDS: SODIUM CHLORIDE IVPB SCH ×4 (05:21→23:54)
[2021-05-16] MEDS: AMPICILLIN IVPB SCH ×4 (05:21→23:54)
[2021-05-16] MEDS: Sodium Chloride 0.9% 1,000 ML IV SCH ×3 (05:22→18:05)
[2021-05-16 05:26] LABS: Albumin 3.1 g/dL (3.5-5.0); Anion Gap 12 mmol/L (10-20); BUN (Urea Nitrogen) 24 mg/dL (8.9-20.6); BUN/Creatinine Ratio 9.76; Calc. Creatinine Clearance 68 mL/min (70-130); Calcium 8.4 mg/dL (7.8-10.44); Carbon Dioxide 23 mmol/L (22-29); Chloride 104 mmol/L (98-107); Glucose 115 mg/dL (70-105); Phosphorus 2.9 mg/dL (2.3-4.7); Potassium 3.9 mmol/L (3.5-5.1); Sodium 135 mmol/L (136-145)
[2021-05-16] MEDS ORDERED: Ondansetron ODT 4 MG TAB PO PRN (05:48)
[2021-05-16] MEDS ORDERED: Labetalol HCl 100 MG/20 ML VIAL SLOW IVP PRN (05:48)
[2021-05-16] MEDS ORDERED: GUAIFENESIN SF SOLN 200 MG/10 ML UDCUP PO PRN (05:48)
[2021-05-16] MEDS ORDERED: Loratadine 10 MG TAB PO PRN (05:48)
[2021-05-16] MEDS ORDERED: Sodium Chloride 0.65% Nasal 44 ML BOT EA NARE PRN (05:48)
[2021-05-16] MEDS ORDERED: Cepastat Lozenges 1 LOZ PO PRN (05:48)
[2021-05-16] MEDS ORDERED: Loperamide HCl 2 MG CAP PO PRN (05:48)
[2021-05-16] MEDS ORDERED: Hydrocerin (Eucerin) Cream 120 gm Jar TOP PRN (05:48)
[2021-05-16] MEDS ORDERED: Bisacodyl 5 MG TAB PO PRN (05:48)
[2021-05-16] MEDS ORDERED: Artificial Tear Sol 15 ML BOT EA EYE PRN (05:48)
[2021-05-16] MEDS ORDERED: Calcium Carbonate 500 MG ChewTAB PO PRN (05:48)
[2021-05-16] MEDS ORDERED: Senokot S 8.6-50 MG TAB PO PRN (05:48)
[2021-05-16] MEDS: Folic Acid 1 MG TAB PO SCH (09:24)
[2021-05-16] MEDS: Ferrous Sulfate 325 MG TAB PO SCH (09:24)
[2021-05-16] MEDS: Cyanocobalamin (Vitamin B-12) 1,000 MCG TAB PO SCH (09:24)
[2021-05-16] MEDS: Multivitamin W/ Minerals 1 TAB PO SCH (09:24)
[2021-05-16] MEDS: Finasteride 5 MG TAB PO SCH (09:25)
[2021-05-16] MEDS: Tamsulosin HCl 0.4 MG CAP PO SCH ×2 (09:25→20:23)
[2021-05-16] MEDS: Heparin 5,000 UNITS/ML VIAL SC SCH ×2 (09:25→20:19)
[2021-05-16] MEDS: Carvedilol 3.125 MG TAB PO SCH ×2 (09:34→16:43)
[2021-05-16] MEDS ORDERED: FLU VACC QS2021-22(6MOS UP)/PF 60 MCG/0.5 ML SYRINGE IM ONE (18:00)
[2021-05-17 05:21] LABS: #Eosinphils 0.1 thou/uL (0.0-0.7); #Lymphocytes 1.7 thou/uL (1.20-3.40); #Monocytes 0.7 thou/uL (0.11-0.59); #Neutrophils 5.1 thou/uL (1.40-6.50); %Basophils 0.4 % (0.0-1.0); %Eosinophils 1.7 % (0.0-10.0); %Lymphocytes 22.4 % (21.0-51.0); %Monocytes 9.5 % (0.0-10.0); Mean Corpuscular HGB CONC 34.3 g/dL (32.0-36.0); Mean Corpuscular Hemoglobin 30.1 pg (27.0-31.0); Platelet Count 190 thou/uL (130-400); RBC Distribution Width 15.1 % (11.5-14.5); Red Blood Cell (RBC) Count 2.31 mill/uL (4.70-6.10); White Blood Cell (WBC) Count 7.8 thou/uL (4.8-10.8)
[2021-05-17] MEDS: ADMIXTURE FEE IVPB SCH ×3 (05:24→17:53)
[2021-05-17] MEDS: SODIUM CHLORIDE IVPB SCH ×3 (05:24→17:53)
[2021-05-17] MEDS: AMPICILLIN IVPB SCH ×3 (05:24→17:53)
[2021-05-17 05:51] LABS: Albumin 3.1 g/dL (3.5-5.0); Anion Gap 13 mmol/L (10-20); BUN (Urea Nitrogen) 20 mg/dL (8.9-20.6); BUN/Creatinine Ratio 9.05; Calc. Creatinine Clearance 75 mL/min (70-130); Calcium 7.9 mg/dL (7.8-10.44); Carbon Dioxide 23 mmol/L (22-29); Chloride 104 mmol/L (98-107); Glucose 107 mg/dL (70-105); Magnesium 1.6 mg/dL (1.6-2.6); Phosphorus 3.4 mg/dL (2.3-4.7); Potassium 4.2 mmol/L (3.5-5.1); Sodium 136 mmol/L (136-145)
[2021-05-17 06:29] LABS: Iron 11 ug/dL (65-175); Iron Binding Capacity, Total 160 mcg/dL (261-462)
[2021-05-17] MEDS ORDERED: Magnesium 2 GM/50 ML 2 GM in Premix Bag 1 BAG IVPB SCH ×2 (07:15→10:30)
[2021-05-17] MEDS: Iron, Sodium Ferric Gluconate 250 MG in Sodium Chloride 0.9% 250 ML 250 ML IVPB SCH (08:27)
[2021-05-17] MEDS: Multivitamin W/ Minerals 1 TAB PO SCH (08:36)
[2021-05-17] MEDS: Ferrous Sulfate 325 MG TAB PO SCH (08:36)
[2021-05-17] MEDS: Tamsulosin HCl 0.4 MG CAP PO SCH ×2 (08:36→20:01)
[2021-05-17] MEDS: Cyanocobalamin (Vitamin B-12) 1,000 MCG TAB PO SCH (08:36)
[2021-05-17] MEDS: Finasteride 5 MG TAB PO SCH (08:36)
[2021-05-17] MEDS: Carvedilol 3.125 MG TAB PO SCH ×2 (08:36→17:52)
[2021-05-17] MEDS: Folic Acid 1 MG TAB PO SCH (08:36)
[2021-05-17] MEDS: Heparin 5,000 UNITS/ML VIAL SC SCH ×2 (08:37→20:02)
[2021-05-17] MEDS: Sodium Chloride 0.9% 1,000 ML IV SCH ×2 (11:52→20:01)
[2021-05-17] MEDS: HYDROcodone/Acetaminophen 5/325 mg Tablet PO PRN (20:01)
[2021-05-18] MEDS: ADMIXTURE FEE IVPB SCH ×5 (00:37→23:25)
[2021-05-18] MEDS: SODIUM CHLORIDE IVPB SCH ×5 (00:37→23:25)
[2021-05-18] MEDS: AMPICILLIN IVPB SCH ×5 (00:37→23:25)
[2021-05-18 05:13] LABS: Albumin 3.2 g/dL (3.5-5.0); Anion Gap 15 mmol/L (10-20); BUN (Urea Nitrogen) 17 mg/dL (8.9-20.6); BUN/Creatinine Ratio 8.99; Calc. Creatinine Clearance 88 mL/min (70-130); Carbon Dioxide 22 mmol/L (22-29); Chloride 105 mmol/L (98-107); Glucose 85 mg/dL (70-105); Phosphorus 2.9 mg/dL (2.3-4.7); Potassium 4.1 mmol/L (3.5-5.1); Sodium 138 mmol/L (136-145)
[2021-05-18] MEDS: Sodium Chloride 0.9% 1,000 ML IV SCH ×3 (05:36→23:26)
[2021-05-18 06:12] LABS: IgG Subclass 1 894 mg/dL (248-810); IgG Subclass 2 521 mg/dL (130-555); IgG Subclass 3 86 mg/dL (15-102); Immunoglobulin - G (Sendout) 1691 mg/dL (603-1613)
[2021-05-18 07:43] LABS: #Eosinphils 0.3 thou/uL (0.0-0.7); #Lymphocytes 1.5 thou/uL (1.20-3.40); #Monocytes 0.5 thou/uL (0.11-0.59); %Basophils 0.6 % (0.0-1.0); %Eosinophils 4.4 % (0.0-10.0); %Lymphocytes 19.9 % (21.0-51.0); %Monocytes 6.8 % (0.0-10.0); %Neutrophils 68.3 % (42.0-75.0); Hemoglobin 7.9 g/dL (14.0-18.0); Mean Corpuscular HGB CONC 32.5 g/dL (32.0-36.0); Mean Corpuscular Hemoglobin 29.1 pg (27.0-31.0); Mean Corpuscular Volume 89.7 fL (78.0-98.0); Mean Platelet Volume 6.7 fL (7.4-10.4); Platelet Count 223 thou/uL (130-400); Red Blood Cell (RBC) Count 2.72 mill/uL (4.70-6.10); White Blood Cell (WBC) Count 7.3 thou/uL (4.8-10.8)
[2021-05-18] MEDS: Folic Acid 1 MG TAB PO SCH (09:31)
[2021-05-18] MEDS: Ferrous Sulfate 325 MG TAB PO SCH (09:31)
[2021-05-18] MEDS: Multivitamin W/ Minerals 1 TAB PO SCH (09:31)
[2021-05-18] MEDS: Carvedilol 3.125 MG TAB PO SCH ×2 (09:32→18:15)
[2021-05-18] MEDS: Cyanocobalamin (Vitamin B-12) 1,000 MCG TAB PO SCH (09:32)
[2021-05-18] MEDS: Tamsulosin HCl 0.4 MG CAP PO SCH ×2 (09:32→20:01)
[2021-05-18] MEDS: Finasteride 5 MG TAB PO SCH (09:32)
[2021-05-18] MEDS: Heparin 5,000 UNITS/ML VIAL SC SCH ×2 (09:47→20:01)
[2021-05-18] MEDS: Iron, Sodium Ferric Gluconate 250 MG in Sodium Chloride 0.9% 250 ML 250 ML IVPB SCH ×2 (12:48→15:41)
[2021-05-19] MEDS: Acetaminophen 325 MG TAB PO PRN (04:32)
[2021-05-19] MEDS: ADMIXTURE FEE IVPB SCH (05:53)
[2021-05-19] MEDS: SODIUM CHLORIDE IVPB SCH (05:53)
[2021-05-19] MEDS: AMPICILLIN IVPB SCH (05:53)
[2021-05-19 06:55] LABS: #Eosinphils 0.3 thou/uL (0.0-0.7); #Lymphocytes 1.6 thou/uL (1.20-3.40); #Monocytes 0.6 thou/uL (0.11-0.59); #Neutrophils 4.7 thou/uL (1.40-6.50); %Basophils 0.1 % (0.0-1.0); %Eosinophils 4.5 % (0.0-10.0); %Lymphocytes 22.8 % (21.0-51.0); %Monocytes 7.7 % (0.0-10.0); %Neutrophils 64.8 % (42.0-75.0); Hemoglobin 7.2 g/dL (14.0-18.0); Mean Corpuscular HGB CONC 32.1 g/dL (32.0-36.0); Mean Corpuscular Hemoglobin 28.6 pg (27.0-31.0); Mean Corpuscular Volume 89.2 fL (78.0-98.0); Mean Platelet Volume 6.9 fL (7.4-10.4); Platelet Count 254 thou/uL (130-400); RBC Distribution Width 15.3 % (11.5-14.5); Red Blood Cell (RBC) Count 2.52 mill/uL (4.70-6.10); White Blood Cell (WBC) Count 7.2 thou/uL (4.8-10.8)
[2021-05-19 07:09] LABS: Anion Gap 12 mmol/L (10-20); BUN (Urea Nitrogen) 13 mg/dL (8.9-20.6); BUN/Creatinine Ratio 8.13; Calc. Creatinine Clearance 104 mL/min (70-130); Calcium 8.4 mg/dL (7.8-10.44); Carbon Dioxide 26 mmol/L (22-29); Chloride 104 mmol/L (98-107); Glucose 93 mg/dL (70-105); Magnesium 1.4 mg/dL (1.6-2.6); Phosphorus 3.2 mg/dL (2.3-4.7); Potassium 3.8 mmol/L (3.5-5.1); Sodium 138 mmol/L (136-145)
[2021-05-19] MEDS ORDERED: Magnesium Sulfate 4 GM in Sodium Chloride 0.9% 250 ML 250 ML IVPB SCH (08:00)
[2021-05-19] MEDS ORDERED: EPOETIN ALFA-EPBX (ESRD) 10,000 UNIT/ML VIAL SC SCH (08:00)
[2021-05-19] MEDS ORDERED: Magnesium 2 GM/50 ML 2 GM in Premix Bag 1 BAG IVPB SCH (08:45)
[2021-05-19] MEDS ORDERED: AMOXicillin 250 MG CAP PO SCH ×3 (09:00→15:00)
[2021-05-19] MEDS: Folic Acid 1 MG TAB PO SCH (09:11)
[2021-05-19] MEDS: Multivitamin W/ Minerals 1 TAB PO SCH (09:11)
[2021-05-19] MEDS: Cyanocobalamin (Vitamin B-12) 1,000 MCG TAB PO SCH (09:11)
[2021-05-19] MEDS: Ferrous Sulfate 325 MG TAB PO SCH (09:11)
[2021-05-19] MEDS: Finasteride 5 MG TAB PO SCH (09:11)
[2021-05-19] MEDS: Carvedilol 3.125 MG TAB PO SCH ×2 (09:11→17:03)
[2021-05-19] MEDS: Heparin 5,000 UNITS/ML VIAL SC SCH ×2 (09:12→21:26)
[2021-05-19] MEDS: Tamsulosin HCl 0.4 MG CAP PO SCH ×2 (09:14→21:26)
[2021-05-19] MEDS: Iron, Sodium Ferric Gluconate 250 MG in Sodium Chloride 0.9% 250 ML 250 ML IVPB SCH (09:41)
[2021-05-19] MEDS: Sodium Chloride 0.9% 1,000 ML IV SCH (15:21)
[2021-05-19] MEDS: AMOXicillin 250 MG CAP PO SCH (21:25)
[2021-05-20] MEDS: Sodium Chloride 0.9% 1,000 ML IV SCH (02:14)
[2021-05-20] MEDS: Acetaminophen 325 MG TAB PO PRN ×2 (02:17→08:04)
[2021-05-20] MEDS: HYDROcodone/Acetaminophen 5/325 mg Tablet PO PRN (06:03)
[2021-05-20 06:47] LABS: #Eosinphils 0.3 thou/uL (0.0-0.7); #Lymphocytes 1.8 thou/uL (1.20-3.40); #Monocytes 0.6 thou/uL (0.11-0.59); #Neutrophils 4.9 thou/uL (1.40-6.50); %Basophils 0.2 % (0.0-1.0); %Eosinophils 4.3 % (0.0-10.0); %Lymphocytes 23.8 % (21.0-51.0); %Monocytes 7.4 % (0.0-10.0); %Neutrophils 64.3 % (42.0-75.0); Hemoglobin 7.4 g/dL (14.0-18.0); Mean Corpuscular HGB CONC 31.6 g/dL (32.0-36.0); Mean Corpuscular Hemoglobin 28.4 pg (27.0-31.0); Mean Corpuscular Volume 89.7 fL (78.0-98.0); Mean Platelet Volume 6.4 fL (7.4-10.4); Platelet Count 314 thou/uL (130-400); RBC Distribution Width 15.4 % (11.5-14.5); Red Blood Cell (RBC) Count 2.62 mill/uL (4.70-6.10); White Blood Cell (WBC) Count 7.7 thou/uL (4.8-10.8)
[2021-05-20 07:05] LABS: Anion Gap 14 mmol/L (10-20); BUN (Urea Nitrogen) 11 mg/dL (8.9-20.6); BUN/Creatinine Ratio 6.92; Calc. Creatinine Clearance 104 mL/min (70-130); Calcium 8.9 mg/dL (7.8-10.44); Carbon Dioxide 24 mmol/L (22-29); Chloride 105 mmol/L (98-107); Glucose 89 mg/dL (70-105); Phosphorus 3.4 mg/dL (2.3-4.7); Sodium 139 mmol/L (136-145)
[2021-05-20] MEDS: Folic Acid 1 MG TAB PO SCH (08:06)
[2021-05-20] MEDS: Multivitamin W/ Minerals 1 TAB PO SCH (08:07)
[2021-05-20] MEDS: Tamsulosin HCl 0.4 MG CAP PO SCH (08:08)
[2021-05-20] MEDS: Finasteride 5 MG TAB PO SCH (08:08)
[2021-05-20] MEDS: Ferrous Sulfate 325 MG TAB PO SCH (08:08)
[2021-05-20] MEDS: Carvedilol 3.125 MG TAB PO SCH (08:09)
[2021-05-20] MEDS: Cyanocobalamin (Vitamin B-12) 1,000 MCG TAB PO SCH (08:09)
[2021-05-20] MEDS: AMOXicillin 250 MG CAP PO SCH (08:12)
[2021-05-20] MEDS: Heparin 5,000 UNITS/ML VIAL SC SCH (08:16)
[2021-05-20] MEDS: Iron, Sodium Ferric Gluconate 250 MG in Sodium Chloride 0.9% 250 ML 250 ML IVPB SCH (09:46)
[2021-05-20 10:08] LABS: Magnesium 1.7 mg/dL (1.6-2.6)
[2021-05-20 11:36] VITALS: BP 102/67; TEMP 97.7
== END 2021-05-20 13:50 | disposition home or self-care (01) | DRG 872 ==
LOC: ERS 10:03 → 2NO 16:36 → T4-A 05-18 12:41
PROVIDERS: ADMIT Family Medicine; ATTEND Internal Medicine
DX: A41.81 Sepsis due to Enterococcus (principal); N13.6 Pyonephrosis; M62.82 Rhabdomyolysis; E87.1 Hypo-osmolality and hyponatremia; N17.9 Acute kidney failure, unspecified; Z20.822 Contact with and (suspected) exposure to COVID-19; R65.20 Severe sepsis without septic shock; I12.9 Hypertensive chronic kidney disease with stage 1 through stage 4 chronic kidney disease, or unspecified chronic kidney disease; D63.1 Anemia in chronic kidney disease; Z96.0 Presence of urogenital implants; N18.2 Chronic kidney disease, stage 2 (mild); M10.9 Gout, unspecified; G47.33 Obstructive sleep apnea (adult) (pediatric); F32.A Depression, unspecified; R91.1 Solitary pulmonary nodule; E79.0 Hyperuricemia without signs of inflammatory arthritis and tophaceous disease; R19.00 Intra-abdominal and pelvic swelling, mass and lump, unspecified site; E66.9 Obesity, unspecified; D89.89 Other specified disorders involving the immune mechanism, not elsewhere classified; R51.9 Headache, unspecified; Z82.5 Family history of asthma and other chronic lower respiratory diseases; Z80.9 Family history of malignant neoplasm, unspecified; Z90.49 Acquired absence of other specified parts of digestive tract; Z88.8 Allergy status to other drugs, medicaments and biological substances; Z68.38 Body mass index [BMI] 38.0-38.9, adult
CPT/HCPCS: 36415; 36416; 51701; 70551; 71045; 74176; 80048; 80053; 80069; 80202; 81003; 81015; 82550; 82728; 82787; 83540; 83550; 83605; 83735; 84100; 84550; 85025; 86160; 86850; 86900; 86901; 87040; 87077; 87086; 87149; 87186; 93005; 96365; 96368; J0290; J0692; J1644; J2405; J2916; J3370; J3475; J3490; J7050; Q5105; U0002

== ENCOUNTER 2021-06-07 12:30 | Outpatient (CLI) | payer OTHER ==
[2021-06-07 13:32] LABS: Hemoglobin 8.9 g/dL (13.5-17.5); Mean Corpuscular HGB CONC 30.5 g/dL (32.0-36.0); Mean Corpuscular Hemoglobin 28.5 pg (27.0-33.0); Mean Corpuscular Volume 93.6 fl (81.2-95.1); Mean Platelet Volume 9.3 fl (7.4-10.4); Platelet Count 220 10x3/uL (150-450); RBC Distribution Width 15.7 % (11.5-14.5); Red Blood Cell (RBC) Count 3.12 10x6/uL (4.32-5.72)
[2021-06-07 13:52] LABS: Anion Gap 14 mmol/L (10-20); BUN (Urea Nitrogen) 21 mg/dL (8.9-20.6); Calc. Creatinine Clearance 0 mL/min (70-130); Calcium 8.9 mg/dL (7.8-10.44); Carbon Dioxide 28 mmol/L (22-29); Chloride 106 mmol/L (98-107); Glucose 82 mg/dL (70-105); Potassium 4.8 mmol/L (3.5-5.1); Sodium 143 mmol/L (136-145)
[2021-06-07 22:07] LABS: SARS-CoV-2 PCR by NAA Not Detected (NotDetected)
== END 2021-06-07 12:31 | disposition home or self-care (01) ==
LOC: LABBT 12:30
PROVIDERS: ATTEND Thoracic Surgery (Cardiothoracic Vascular Surgery)
DX: Z01.812 Encounter for preprocedural laboratory examination (principal); K02.9 Dental caries, unspecified; K04.7 Periapical abscess without sinus; Z20.822 Contact with and (suspected) exposure to COVID-19
CPT/HCPCS: 80048; 85027; 86850; 86900; 86901; U0003; U0005

== ENCOUNTER 2021-06-08 13:32 | Day surgery (SDC) | payer OTHER ==
[2021-06-07 10:16] VITALS: BMI 37.3
[2021-06-08] MEDS ORDERED: Midazolam HCl 2 mg/2 ml Vial ONE ×3 (14:40→14:58)
[2021-06-08] MEDS ORDERED: Fentanyl 100 MCG/2 ML VIAL ONE ×2 (14:41)
[2021-06-08] MEDS ORDERED: Glycopyrrolate 0.2 MG/ML 5 ML SYRINGE ONE (15:05)
[2021-06-08] MEDS ORDERED: Rocuronium Bromide 10 MG/ML (10ML VIAL) ONE (15:05)
[2021-06-08] MEDS ORDERED: Lidocaine 1% PF 5 ML VIAL ONE (15:05)
[2021-06-08] MEDS ORDERED: Ondansetron PF 4 MG/2 ML Vial ONE (15:05)
[2021-06-08] MEDS ORDERED: Dexamethasone 20 MG/5 ML VIAL ONE (15:05)
[2021-06-08] MEDS ORDERED: PROPOFOL 200 MG/20 ML VIAL ONE (15:05)
[2021-06-08] MEDS ORDERED: EPINEPHrine 1 MG/ML AMP ONE (15:27)
[2021-06-08] MEDS ORDERED: Bupivacaine PF 0.5% 30 ML VIAL ONE (15:27)
[2021-06-08] MEDS ORDERED: Carvedilol 3.125 MG TAB ONE (17:33)
[2021-06-08] MEDS ORDERED: Amlodipine 5 MG TAB ONE (17:33)
== END 2021-06-08 19:57 | disposition home or self-care (01) ==
LOC: SDC 13:32
PROVIDERS: ATTEND Thoracic Surgery (Cardiothoracic Vascular Surgery)
PROC: 07B74ZX Excision of Thorax Lymphatic, Percutaneous Endoscopic Approach, Diagnostic (ICD-10-PCS; principal; 2021-06-08)
DX: I89.8 Other specified noninfective disorders of lymphatic vessels and lymph nodes (principal); I10 Essential (primary) hypertension; J45.909 Unspecified asthma, uncomplicated; M10.9 Gout, unspecified; Z87.891 Personal history of nicotine dependence; Z79.2 Long term (current) use of antibiotics; Z79.899 Other long term (current) drug therapy; Z88.6 Allergy status to analgesic agent; Z91.013 Allergy to seafood
CPT/HCPCS: 88184; 88305; 88312; 88341; 88342; J0171; J0690; J1100; J2250; J2405; J2704; J3010; S0020

== ENCOUNTER 2021-06-10 23:45 | Emergency (ER) | payer OTHER ==
[2021-06-11] MEDS ORDERED: Morphine 4 MG/ML VIAL ONE (00:18)
[2021-06-11] MEDS ORDERED: Ondansetron PF 4 MG/2 ML Vial ONE (00:18)
[2021-06-11 00:35] LABS: #Eosinphils 0.3 thou/uL (0.0-0.7); #Lymphocytes 2.1 thou/uL (1.20-3.40); #Monocytes 0.6 thou/uL (0.11-0.59); %Basophils 0.3 % (0.0-1.0); %Eosinophils 3.5 % (0.0-10.0); %Lymphocytes 23.7 % (21.0-51.0); %Monocytes 6.3 % (0.0-10.0); %Neutrophils 66.2 % (42.0-75.0); Hemoglobin 10.6 g/dL (14.0-18.0); Mean Corpuscular HGB CONC 32.7 g/dL (32.0-36.0); Mean Corpuscular Hemoglobin 30.1 pg (27.0-31.0); Mean Corpuscular Volume 92.2 fL (78.0-98.0); Mean Platelet Volume 6.7 fL (7.4-10.4); Platelet Count 286 thou/uL (130-400); RBC Distribution Width 14.7 % (11.5-14.5); Red Blood Cell (RBC) Count 3.51 mill/uL (4.70-6.10)
[2021-06-11 00:57] LABS: ALT (SGPT) 7 U/L (8-55); AST (SGOT) 13 U/L (5-34); Alkaline Phosphatase 123 U/L (40-110); Anion Gap 15 mmol/L (10-20); BUN (Urea Nitrogen) 30 mg/dL (8.9-20.6); Bilirubin, Total 0.2 mg/dL (0.2-1.2); CK (CPK) 64 U/L (30-200); Calc. Creatinine Clearance 0 mL/min (70-130); Calcium 9.2 mg/dL (7.8-10.44); Carbon Dioxide 24 mmol/L (22-29); Chloride 103 mmol/L (98-107); Globulin 5.1 g/dL (2.4-3.5); Glucose 121 mg/dL (70-105); Magnesium 1.4 mg/dL (1.6-2.6); Potassium 4.2 mmol/L (3.5-5.1); Protein, Total 9.1 g/dL (6.0-8.3); Sodium 138 mmol/L (136-145)
[2021-06-11 02:52] LABS: Bacteria/HPF None Seen HPF (None Seen); Bilirubin Negative (Negative); Blood, Urine 3+ (Negative); Clarity Clear (Clear); Glucose, Urine (Dipstick) Normal (Negative); Ketone, Urine Negative (Negative); Leukocyte 250 Leu/uL (Negative); Nitrite Negative (Negative); Protein, Urine (Dipstick) Negative (Neg-Trace); RBC/HPF Greater than 50 HPF (0-3); Squamous Epithelial 0-3 HPF (0-3); Urobilinogen Normal mg/dL (Less than 2); pH, Urine 5.5 (5.0-9.0)
== END 2021-06-11 03:40 | disposition home or self-care (01) ==
LOC: ERS 23:45
DX: M54.50 Low back pain, unspecified (principal); R31.9 Hematuria, unspecified; G47.30 Sleep apnea, unspecified; Z79.899 Other long term (current) drug therapy; Z96.0 Presence of urogenital implants
CPT/HCPCS: 36415; 74176; 80053; 81003; 81015; 82550; 83735; 85025; J2270; J2405

== ENCOUNTER 2021-12-04 10:05 | Emergency (ER) | payer SELFPAY ==
[2021-12-04 11:24] LABS: #Eosinphils 0.1 thou/uL (0.0-0.7); #Lymphocytes 1.5 thou/uL (1.20-3.40); #Monocytes 0.4 thou/uL (0.11-0.59); #Neutrophils 3.4 thou/uL (1.40-6.50); %Basophils 0.3 % (0.0-1.0); %Eosinophils 2.5 % (0.0-10.0); %Monocytes 7.2 % (0.0-10.0); Mean Corpuscular Hemoglobin 30.8 pg (27.0-31.0); Mean Corpuscular Volume 93.2 fL (78.0-98.0); Mean Platelet Volume 7.6 fL (7.4-10.4); Platelet Count 219 thou/uL (130-400); RBC Distribution Width 13.8 % (11.5-14.5); Red Blood Cell (RBC) Count 3.57 mill/uL (4.70-6.10); White Blood Cell (WBC) Count 5.4 thou/uL (4.8-10.8)
[2021-12-04 11:45] LABS: ALT (SGPT) 14 U/L (8-55); AST (SGOT) 23 U/L (5-34); Albumin 3.7 g/dL (3.5-5.0); Alkaline Phosphatase 96 U/L (40-110); Anion Gap 12 mmol/L (10-20); BUN (Urea Nitrogen) 8 mg/dL (8.9-20.6); Calc. Creatinine Clearance 0 mL/min (70-130); Calcium 8.7 mg/dL (7.8-10.44); Carbon Dioxide 26 mmol/L (22-29); Chloride 104 mmol/L (98-107); Globulin 3.1 g/dL (2.4-3.5); Glucose 168 mg/dL (70-105); Potassium 3.8 mmol/L (3.5-5.1); Protein, Total 6.8 g/dL (6.0-8.3); Sodium 138 mmol/L (136-145)
[2021-12-04] MEDS ORDERED: cefTRIAXone\\ROCEPHIN 2 GM VIAL ONE (12:28)
== END 2021-12-04 13:04 | disposition home or self-care (01) ==
LOC: ERS 10:05
DX: L03.116 Cellulitis of left lower limb (principal); M10.9 Gout, unspecified; G47.30 Sleep apnea, unspecified; Z79.899 Other long term (current) drug therapy
CPT/HCPCS: 36415; 80053; 83605; 85025; 87040; 96365; J0696

== ENCOUNTER 2021-12-06 07:16 | Inpatient (IN) | payer SELFPAY ==
[2021-12-06] MEDS ORDERED: Cefepime 2 GM VIAL ONE (08:03)
[2021-12-06 08:18] LABS: #Eosinphils 0.1 thou/uL (0.0-0.7); #Lymphocytes 1.5 thou/uL (1.20-3.40); #Monocytes 0.4 thou/uL (0.11-0.59); #Neutrophils 3.3 thou/uL (1.40-6.50); %Basophils 0.9 % (0.0-1.0); %Eosinophils 2.6 % (0.0-10.0); %Lymphocytes 27.4 % (21.0-51.0); %Neutrophils 61.1 % (42.0-75.0); Hemoglobin 11.5 g/dL (14.0-18.0); Mean Corpuscular HGB CONC 32.8 g/dL (32.0-36.0); Mean Corpuscular Hemoglobin 30.8 pg (27.0-31.0); Mean Corpuscular Volume 93.8 fL (78.0-98.0); Mean Platelet Volume 7.2 fL (7.4-10.4); Platelet Count 273 thou/uL (130-400); Red Blood Cell (RBC) Count 3.74 mill/uL (4.70-6.10); White Blood Cell (WBC) Count 5.4 thou/uL (4.8-10.8)
[2021-12-06] MEDS ORDERED: VANCOMYCIN 2 GRAM/500 ML BAG 2 GM in Premix Bag 1 BAG IVPB SCH (08:30)
[2021-12-06 08:40] LABS: ALT (SGPT) 13 U/L (8-55); AST (SGOT) 17 U/L (5-34); Albumin 3.7 g/dL (3.5-5.0); Alkaline Phosphatase 104 U/L (40-110); Anion Gap 12 mmol/L (10-20); BUN (Urea Nitrogen) 7 mg/dL (8.9-20.6); Bilirubin, Total 0.8 mg/dL (0.2-1.2); Calc. Creatinine Clearance 0 mL/min (70-130); Carbon Dioxide 27 mmol/L (22-29); Chloride 103 mmol/L (98-107); Globulin 3.1 g/dL (2.4-3.5); Glucose 180 mg/dL (70-105); Potassium 3.9 mmol/L (3.5-5.1); Protein, Total 6.8 g/dL (6.0-8.3); Sodium 138 mmol/L (136-145)
[2021-12-06] MEDS ORDERED: Acetaminophen 325 MG TAB PO PRN (09:39)
[2021-12-06] MEDS ORDERED: Ondansetron ODT 4 MG TAB PO PRN (09:39)
[2021-12-06] MEDS ORDERED: Ondansetron PF 4 MG/2 ML Vial IVP PRN (09:39)
[2021-12-06] MEDS ORDERED: Calcium Carbonate 500 MG ChewTAB PO PRN (09:39)
[2021-12-06] MEDS ORDERED: Senokot S 8.6-50 MG TAB PO PRN (09:39)
[2021-12-06] MEDS ORDERED: traMADol HCl 50 MG TAB PO PRN (09:41)
[2021-12-06] MEDS ORDERED: Vancomycin 1 GM in Premix Bag 1 BAG IVPB SCH (09:45)
[2021-12-06] MEDS ORDERED: Electrolyte Replacement Protocol 1 EACH FS PRN (09:45)
[2021-12-06] MEDS ORDERED: Labetalol HCl 100 MG/20 ML VIAL SLOW IVP PRN (09:53)
[2021-12-06 10:00] LABS: Bilirubin Negative (Negative); Blood, Urine 3+ (Negative); Clarity Clear (Clear); Glucose, Urine (Dipstick) Normal (Negative); Ketone, Urine Negative (Negative); Leukocyte 500 Leu/uL (Negative); Nitrite Negative (Negative); Protein, Urine (Dipstick) 50 mg/dL (Neg-Trace); RBC/HPF Greater than 50 HPF (0-3); Specific Gravity, Urine 1.018 (1.002-1.036); Squamous Epithelial None Seen HPF (0-3); Urobilinogen Normal mg/dL (Less than 2); WBC/HPF 21-50 HPF (0-3); pH, Urine 5.5 (5.0-9.0)
[2021-12-06 10:03] LABS: Bacteria/HPF 1+ HPF (None Seen)
[2021-12-06 10:53] VITALS: BMI 40.6
[2021-12-06] MEDS: Carvedilol 3.125 MG TAB PO SCH (17:03)
[2021-12-06] MEDS: Cefepime 2 GM in Sodium Chloride 0.9% 100 ML IVPB SCH (19:57)
[2021-12-06] MEDS ORDERED: Famotidine 20 MG TAB PO SCH (21:00)
[2021-12-07 05:59] LABS: #Basophils 0.1 thou/uL (0.0-0.2); #Eosinphils 0.2 thou/uL (0.0-0.7); #Lymphocytes 1.3 thou/uL (1.20-3.40); #Monocytes 0.5 thou/uL (0.11-0.59); #Neutrophils 4.7 thou/uL (1.40-6.50); %Basophils 0.9 % (0.0-1.0); %Eosinophils 2.5 % (0.0-10.0); %Lymphocytes 19.1 % (21.0-51.0); %Monocytes 7.1 % (0.0-10.0); %Neutrophils 70.4 % (42.0-75.0); Hemoglobin 11.7 g/dL (14.0-18.0); Hemoglobin A1c 10.9 % (4.0-6.0); Mean Corpuscular HGB CONC 32.6 g/dL (32.0-36.0); Mean Corpuscular Hemoglobin 30.5 pg (27.0-31.0); Mean Corpuscular Volume 93.7 fL (78.0-98.0); Mean Platelet Volume 7.1 fL (7.4-10.4); Platelet Count 281 thou/uL (130-400); RBC Distribution Width 13.9 % (11.5-14.5); Red Blood Cell (RBC) Count 3.83 mill/uL (4.70-6.10); White Blood Cell (WBC) Count 6.7 thou/uL (4.8-10.8)
[2021-12-07 06:22] LABS: Anion Gap 10 mmol/L (10-20); BUN (Urea Nitrogen) 7 mg/dL (8.9-20.6); CRP (Inflammatory) 4.54 mg/dL (= or < 0.5); Calc. Creatinine Clearance 164 mL/min (70-130); Calcium 9.1 mg/dL (7.8-10.44); Carbon Dioxide 30 mmol/L (22-29); Chloride 103 mmol/L (98-107); Glucose 179 mg/dL (70-105); Magnesium 1.8 mg/dL (1.6-2.6); Sodium 139 mmol/L (136-145)
[2021-12-07] MEDS ORDERED: HYDROcodone/Acetaminophen 10/325 mg Tablet PO PRN (08:17)
[2021-12-07] MEDS ORDERED: HumaLOG 300 UNITS/3 ML VIAL SC PRN ×2 (08:20)
[2021-12-07] MEDS ORDERED: Dextrose 5% in Water 1,000 ML IV PRN (08:20)
[2021-12-07] MEDS ORDERED: Dextrose 50% Abboject 50 ML SYRINGE SLOW IVP PRN (08:20)
[2021-12-07] MEDS: Allopurinol 100 MG TAB PO SCH (08:25)
[2021-12-07] MEDS: Enoxaparin Sodium 40 MG/0.4 ML SYRINGE SC SCH (08:25)
[2021-12-07] MEDS: Cefepime 2 GM in Sodium Chloride 0.9% 100 ML IVPB SCH ×2 (08:26→20:17)
[2021-12-07] MEDS: Carvedilol 3.125 MG TAB PO SCH ×2 (08:28→17:34)
[2021-12-07] MEDS ORDERED: Magnesium 2 GM/50 ML(in water) 2 GM in Premix Bag 1 BAG IVPB SCH (09:00)
[2021-12-07] MEDS: Amlodipine 10 MG TAB PO SCH (09:07)
[2021-12-07] MEDS: Finasteride 5 MG TAB PO SCH (09:07)
[2021-12-07] MEDS: metFORMIN 500 MG TAB PO SCH (17:34)
[2021-12-07 20:53] LABS: Vancomycin, Trough 22.4 ug/mL
[2021-12-07] MEDS: Vancomycin 1.5 GRAM/300 ML BAG 1.5 GM in Premix Bag 1 BAG IVPB SCH (21:51)
[2021-12-08 06:16] LABS: #Eosinphils 0.2 thou/uL (0.0-0.7); #Lymphocytes 1.5 thou/uL (1.20-3.40); #Monocytes 0.5 thou/uL (0.11-0.59); #Neutrophils 3.9 thou/uL (1.40-6.50); %Basophils 0.5 % (0.0-1.0); %Eosinophils 2.9 % (0.0-10.0); %Monocytes 7.8 % (0.0-10.0); %Neutrophils 63.7 % (42.0-75.0); Hemoglobin 10.9 g/dL (14.0-18.0); Mean Corpuscular HGB CONC 34.5 g/dL (32.0-36.0); Mean Corpuscular Hemoglobin 30.8 pg (27.0-31.0); Mean Corpuscular Volume 89.1 fL (78.0-98.0); Mean Platelet Volume 6.6 fL (7.4-10.4); Platelet Count 244 thou/uL (130-400); RBC Distribution Width 16.1 % (11.5-14.5); Red Blood Cell (RBC) Count 3.53 mill/uL (4.70-6.10)
[2021-12-08 06:34] LABS: Anion Gap 12 mmol/L (10-20); BUN (Urea Nitrogen) 7 mg/dL (8.9-20.6); Calc. Creatinine Clearance 185 mL/min (70-130); Calcium 8.9 mg/dL (7.8-10.44); Carbon Dioxide 28 mmol/L (22-29); Chloride 102 mmol/L (98-107); Glucose 146 mg/dL (70-105); Potassium 3.7 mmol/L (3.5-5.1); Sodium 138 mmol/L (136-145)
[2021-12-08] MEDS: Cefepime 2 GM in Sodium Chloride 0.9% 100 ML IVPB SCH ×2 (08:12→20:09)
[2021-12-08] MEDS: Carvedilol 3.125 MG TAB PO SCH ×2 (08:12→16:39)
[2021-12-08] MEDS: Enoxaparin Sodium 40 MG/0.4 ML SYRINGE SC SCH (08:12)
[2021-12-08] MEDS: Finasteride 5 MG TAB PO SCH (08:12)
[2021-12-08] MEDS: metFORMIN 500 MG TAB PO SCH ×2 (08:13→16:39)
[2021-12-08] MEDS: Allopurinol 100 MG TAB PO SCH (08:13)
[2021-12-08] MEDS: Amlodipine 10 MG TAB PO SCH (08:16)
[2021-12-08] MEDS: Vancomycin 1.5 GRAM/300 ML BAG 1.5 GM in Premix Bag 1 BAG IVPB SCH ×2 (11:37→22:11)
[2021-12-09] MEDS: Enoxaparin Sodium 40 MG/0.4 ML SYRINGE SC SCH (09:44)
[2021-12-09] MEDS: Carvedilol 3.125 MG TAB PO SCH (09:44)
[2021-12-09] MEDS: Cefepime 2 GM in Sodium Chloride 0.9% 100 ML IVPB SCH (09:44)
[2021-12-09] MEDS: Finasteride 5 MG TAB PO SCH (09:44)
[2021-12-09] MEDS: Allopurinol 100 MG TAB PO SCH (09:45)
[2021-12-09] MEDS: Amlodipine 10 MG TAB PO SCH (09:45)
[2021-12-09] MEDS: metFORMIN 500 MG TAB PO SCH (09:45)
[2021-12-09 10:03] LABS: Vancomycin, Trough 18.9 ug/mL
[2021-12-09] MEDS: Vancomycin 1.5 GRAM/300 ML BAG 1.5 GM in Premix Bag 1 BAG IVPB SCH (11:31)
[2021-12-09 15:30] VITALS: BP 109/74; TEMP 97.5
== END 2021-12-09 15:33 | disposition home or self-care (01) | DRG 638 ==
LOC: ERS 07:16 → T4-B 09:12
PROVIDERS: ADMIT Emergency Medicine; ATTEND Emergency Medicine
DX: E11.628 Type 2 diabetes mellitus with other skin complications (principal); L03.116 Cellulitis of left lower limb; Z68.41 Body mass index [BMI] 40.0-44.9, adult; Z20.822 Contact with and (suspected) exposure to COVID-19; M10.9 Gout, unspecified; G47.33 Obstructive sleep apnea (adult) (pediatric); D63.1 Anemia in chronic kidney disease; N13.5 Crossing vessel and stricture of ureter without hydronephrosis; I12.9 Hypertensive chronic kidney disease with stage 1 through stage 4 chronic kidney disease, or unspecified chronic kidney disease; E11.22 Type 2 diabetes mellitus with diabetic chronic kidney disease; N18.2 Chronic kidney disease, stage 2 (mild); D64.9 Anemia, unspecified; E11.65 Type 2 diabetes mellitus with hyperglycemia; E66.9 Obesity, unspecified; K59.00 Constipation, unspecified; Z88.8 Allergy status to other drugs, medicaments and biological substances; Z91.013 Allergy to seafood; Z79.899 Other long term (current) drug therapy; Z90.49 Acquired absence of other specified parts of digestive tract; Z82.5 Family history of asthma and other chronic lower respiratory diseases
CPT/HCPCS: 36415; 36416; 80048; 80053; 80202; 81003; 81015; 83036; 83605; 83735; 85025; 86140; 87040; 87086; 96365; 96367; J0692; J1650; J1815; J3370; J3475; J3490; J7030; U0003; U0005

== ENCOUNTER 2021-12-24 14:42 | Emergency (ER) | payer SELFPAY ==
[2021-12-24 16:10] LABS: #Eosinphils 0.3 thou/uL (0.0-0.7); #Lymphocytes 1.5 thou/uL (1.20-3.40); #Monocytes 0.3 thou/uL (0.11-0.59); #Neutrophils 3.5 thou/uL (1.40-6.50); %Basophils 0.4 % (0.0-1.0); %Lymphocytes 26.2 % (21.0-51.0); %Monocytes 5.9 % (0.0-10.0); %Neutrophils 62.6 % (42.0-75.0); Hemoglobin 11.1 g/dL (14.0-18.0); Mean Corpuscular HGB CONC 31.9 g/dL (32.0-36.0); Mean Corpuscular Hemoglobin 30.3 pg (27.0-31.0); Mean Platelet Volume 7.2 fL (7.4-10.4); Platelet Count 209 thou/uL (130-400); RBC Distribution Width 13.5 % (11.5-14.5); Red Blood Cell (RBC) Count 3.68 mill/uL (4.70-6.10); White Blood Cell (WBC) Count 5.6 thou/uL (4.8-10.8)
[2021-12-24 16:32] LABS: ALT (SGPT) 10 U/L (8-55); AST (SGOT) 22 U/L (5-34); Alkaline Phosphatase 83 U/L (40-110); Anion Gap 14 mmol/L (10-20); BUN (Urea Nitrogen) 10 mg/dL (8.9-20.6); Bilirubin, Total 0.7 mg/dL (0.2-1.2); Calc. Creatinine Clearance 0 mL/min (70-130); Calcium 9.3 mg/dL (7.8-10.44); Carbon Dioxide 29 mmol/L (22-29); Chloride 103 mmol/L (98-107); Globulin 3.2 g/dL (2.4-3.5); Glucose 111 mg/dL (70-105); Potassium 3.5 mmol/L (3.5-5.1); Protein, Total 7.2 g/dL (6.0-8.3); Sodium 142 mmol/L (136-145)
== END 2021-12-24 17:45 | disposition home or self-care (01) ==
LOC: ERS 14:42
DX: M79.652 Pain in left thigh (principal); M79.2 Neuralgia and neuritis, unspecified; M10.9 Gout, unspecified; G47.30 Sleep apnea, unspecified; R22.2 Localized swelling, mass and lump, trunk; N28.89 Other specified disorders of kidney and ureter; Z79.899 Other long term (current) drug therapy
CPT/HCPCS: 36415; 80053; 85025; 99283

== ENCOUNTER 2022-01-21 07:18 | Outpatient (CLI) | payer BC ==
[2022-01-21] MEDS ORDERED: Iopamidol 370 76% 100 ML VIAL ONE (13:46)
== END 2022-01-21 07:19 | disposition home or self-care (01) ==
LOC: CT 07:18
PROVIDERS: ATTEND Internal Medicine Nephrology
DX: M35.89 Other specified systemic involvement of connective tissue (principal); I10 Essential (primary) hypertension; R31.9 Hematuria, unspecified; R60.0 Localized edema; N13.1 Hydronephrosis with ureteral stricture, not elsewhere classified; N13.4 Hydroureter
CPT/HCPCS: 74178; Q9967

== ENCOUNTER 2023-02-11 19:37 | Emergency (ER) | payer BC ==
[2023-02-11] MEDS ORDERED: Ketorolac Tromethamine 30 MG/ML VIAL ONE ×2 (20:17→20:20)
== END 2023-02-11 21:02 | disposition home or self-care (01) ==
LOC: ERS 19:37
DX: M10.9 Gout, unspecified (principal); E11.9 Type 2 diabetes mellitus without complications; I10 Essential (primary) hypertension; Z79.899 Other long term (current) drug therapy; Z79.84 Long term (current) use of oral hypoglycemic drugs
CPT/HCPCS: 96372; 99283; J1885

== ENCOUNTER 2023-06-15 17:03 | Inpatient (IN) | payer BC ==
[2023-06-15 19:08] LABS: #Eosinphils 0.2 thou/uL (0.0-0.7); #Monocytes 0.5 thou/uL (0.11-0.59); #Neutrophils 5.6 thou/uL (1.40-6.50); %Basophils 0.3 % (0.0-1.0); %Eosinophils 2.3 % (0.0-10.0); %Lymphocytes 20.3 % (21.0-51.0); %Neutrophils 70.8 % (42.0-75.0); Hematocrit 27.1 % (42.0-52.0); Hemoglobin 8.1 g/dL (14.0-18.0); Mean Corpuscular HGB CONC 29.9 g/dL (32.0-36.0); Mean Corpuscular Volume 93.8 fl (78.0-98.0); Platelet Count 250 10x3/uL (130-400); RBC Distribution Width 15.3 % (11.5-14.5); Red Blood Cell (RBC) Count 2.89 mill/uL (4.70-6.10); White Blood Cell (WBC) Count 7.8 10x3/uL (4.8-10.8)
[2023-06-15 19:28] LABS: Phosphorus 4.9 mg/dL (2.3-4.7)
[2023-06-15 19:32] LABS: ALT (SGPT) Less than 7 U/L (8-55); AST (SGOT) 13 U/L (5-34); Albumin 3.5 g/dL (3.5-5.0); Alkaline Phosphatase 94 U/L (40-110); Anion Gap 11 mmol/L (10-20); BUN (Urea Nitrogen) 33 mg/dL (8.9-20.6); Bilirubin, Total 0.7 mg/dL (0.2-1.2); Calc. Creatinine Clearance 0 mL/min (70-130); Calcium 8.8 mg/dL (7.8-10.44); Carbon Dioxide 25 mmol/L (22-29); Chloride 109 mmol/L (98-107); Estimated GFR 14; Globulin 4.8 g/dL (2.4-3.5); Glucose 95 mg/dL (70-105); Magnesium 2.2 mg/dL (1.6-2.6); Protein, Total 8.3 g/dL (6.0-8.3); Sodium 139 mmol/L (136-145)
[2023-06-15 19:38] LABS: Potassium 6.2 mmol/L (3.5-5.1)
[2023-06-15] MEDS ORDERED: Ondansetron ODT 4 MG TAB PO PRN (20:07)
[2023-06-15] MEDS ORDERED: Calcium Carbonate 500 MG ChewTAB PO PRN (20:07)
[2023-06-15] MEDS ORDERED: Calcium Chloride 1 GM/10 ML Abboject SYRINGE ONE (20:07)
[2023-06-15] MEDS ORDERED: Insulin Regular 300 UNITS/3 ML VIAL ONE (20:08)
[2023-06-15] MEDS ORDERED: Sodium Bicarbonate 150 MEQ in Dextrose 5% in Water 1,000 ML IV SCH ×2 (20:15→21:00)
[2023-06-15] MEDS ORDERED: Dextrose 50% Abboject 50 ML SYRINGE SLOW IVP SCH (20:30)
[2023-06-15 23:10] VITALS: BMI 45.0
[2023-06-15] MEDS: Famotidine 20 MG TAB PO SCH (23:57)
[2023-06-16 04:52] LABS: #Eosinphils 0.2 thou/uL (0.0-0.7); #Monocytes 0.6 thou/uL (0.11-0.59); #Neutrophils 6.8 thou/uL (1.40-6.50); %Basophils 0.4 % (0.0-1.0); %Lymphocytes 16.9 % (21.0-51.0); %Monocytes 6.7 % (0.0-10.0); %Neutrophils 73.8 % (42.0-75.0); Hematocrit 31.6 % (42.0-52.0); Hemoglobin 9.2 g/dL (14.0-18.0); Mean Corpuscular HGB CONC 29.1 g/dL (32.0-36.0); Mean Corpuscular Hemoglobin 27.6 pg (27.0-31.0); Mean Corpuscular Volume 94.9 fl (78.0-98.0); Mean Platelet Volume 10.2 fL (7.4-10.4); Platelet Count 269 10x3/uL (130-400); RBC Distribution Width 15.2 % (11.5-14.5); Red Blood Cell (RBC) Count 3.33 mill/uL (4.70-6.10); White Blood Cell (WBC) Count 9.2 10x3/uL (4.8-10.8)
[2023-06-16 05:31] LABS: Anion Gap 16 mmol/L (10-20); BUN (Urea Nitrogen) 35 mg/dL (8.9-20.6); Calc. Creatinine Clearance 37 mL/min (70-130); Calcium 9.4 mg/dL (7.8-10.44); Carbon Dioxide 22 mmol/L (22-29); Chloride 109 mmol/L (98-107); Estimated GFR 13; Glucose 126 mg/dL (70-105); Sodium 141 mmol/L (136-145)
[2023-06-16] MEDS ORDERED: Dextrose 50% Abboject 50 ML SYRINGE SLOW IVP SCH (08:00)
[2023-06-16] MEDS ORDERED: Insulin Regular 300 UNITS/3 ML VIAL IVP SCH (08:00)
[2023-06-16] MEDS: Sodium Bicarbonate 150 MEQ in Dextrose 5% in Water 1,000 ML IV SCH ×2 (10:39→20:30)
[2023-06-16 10:54] LABS: Bacteria/HPF None Seen HPF (None Seen); Bilirubin Negative (Negative); Blood, Urine 1+ (Negative); CAUTI Indications for Culture Urological Procedure; Clarity Clear (Clear); Glucose, Urine (Dipstick) Normal (Negative); Ketone, Urine Negative (Negative); Leukocyte 25 Leu/uL (Negative); Nitrite Negative (Negative); Protein, Urine (Dipstick) 20 mg/dL (Neg-Trace); RBC/HPF 0-3 HPF (0-3); Squamous Epithelial None Seen HPF (0-3); Urobilinogen Normal mg/dL (Less than 2); WBC/HPF 0-3 HPF (0-3); pH, Urine 6.5 (5.0-9.0)
[2023-06-16 10:59] LABS: Urine Culture Reflex Yes Yes
[2023-06-16 11:41] LABS: Creatinine, Urine 34.91 mg/dL (63-166)
[2023-06-16] MEDS ORDERED: Iopamidol 300 61% 100 ML VIAL FS ONE (14:18)
[2023-06-16 14:33] LABS: INR-International Normal Ratio 1.1; Prothrombin Time 14.6 sec (12.0-14.7)
[2023-06-16 14:34] LABS: PTT 33.1 sec (22.9-36.1)
[2023-06-16] MEDS ORDERED: Amlodipine 5 MG TAB PO SCH (15:00)
[2023-06-16 15:21] LABS: Anion Gap 16 mmol/L (10-20); BUN (Urea Nitrogen) 34 mg/dL (8.9-20.6); Calc. Creatinine Clearance 37 mL/min (70-130); Calcium 8.9 mg/dL (7.8-10.44); Carbon Dioxide 24 mmol/L (22-29); Chloride 106 mmol/L (98-107); Estimated GFR 13; Glucose 140 mg/dL (70-105); Potassium 5.3 mmol/L (3.5-5.1); Sodium 141 mmol/L (136-145)
[2023-06-16] MEDS ORDERED: fentaNYL 50 mcg/mL 1 mL Vial ONE ×2 (16:25→17:21)
[2023-06-16] MEDS ORDERED: Morphine 2 MG/ML VIAL SLOW IVP SCH (19:45)
[2023-06-16] MEDS: Rosuvastatin 20 MG TAB PO SCH (20:20)
[2023-06-17] MEDS: Sodium Bicarbonate 150 MEQ in Dextrose 5% in Water 1,000 ML IV SCH (01:32)
[2023-06-17] MEDS ORDERED: Amlodipine 5 MG TAB PO SCH (09:00)
[2023-06-17] MEDS: HYDROcodone/Acetaminophen 10/325 mg Tablet PO PRN (10:42)
[2023-06-17 11:30] LABS: #Eosinphils 0.2 thou/uL (0.0-0.7); #Monocytes 0.6 thou/uL (0.11-0.59); #Neutrophils 6.7 thou/uL (1.40-6.50); %Basophils 0.1 % (0.0-1.0); %Lymphocytes 13.8 % (21.0-51.0); %Monocytes 6.4 % (0.0-10.0); %Neutrophils 77.4 % (42.0-75.0); Hematocrit 28.1 % (42.0-52.0); Hemoglobin 8.5 g/dL (14.0-18.0); Mean Corpuscular HGB CONC 30.2 g/dL (32.0-36.0); Mean Corpuscular Hemoglobin 28.1 pg (27.0-31.0); Mean Corpuscular Volume 92.7 fl (78.0-98.0); Mean Platelet Volume 9.3 fL (7.4-10.4); Platelet Count 249 10x3/uL (130-400); RBC Distribution Width 15.4 % (11.5-14.5); Red Blood Cell (RBC) Count 3.03 mill/uL (4.70-6.10); White Blood Cell (WBC) Count 8.6 10x3/uL (4.8-10.8)
[2023-06-17 11:51] LABS: Albumin 3.6 g/dL (3.5-5.0); Anion Gap 15 mmol/L (10-20); BUN (Urea Nitrogen) 32 mg/dL (8.9-20.6); BUN/Creatinine Ratio 6.43; Calc. Creatinine Clearance 39 mL/min (70-130); Calcium 8.9 mg/dL (7.8-10.44); Carbon Dioxide 28 mmol/L (22-29); Chloride 104 mmol/L (98-107); Estimated GFR 14; Glucose 178 mg/dL (70-105); Phosphorus 4.6 mg/dL (2.3-4.7); Potassium 4.8 mmol/L (3.5-5.1); Sodium 142 mmol/L (136-145)
[2023-06-17] MEDS: Sodium Bicarbonate 50 MEQ in Sodium Chloride 0.45% 1,000 ML IV SCH (17:34)
[2023-06-17] MEDS: Famotidine 20 MG TAB PO SCH (20:34)
[2023-06-17] MEDS: Rosuvastatin 20 MG TAB PO SCH (20:34)
[2023-06-18] MEDS ORDERED: hydrALAZINE 20 MG/ML VIAL SLOW IVP SCH (00:30)
[2023-06-18] MEDS: Sodium Bicarbonate 50 MEQ in Sodium Chloride 0.45% 1,000 ML IV SCH ×2 (03:19→13:37)
[2023-06-18 07:31] LABS: #Eosinphils 0.2 thou/uL (0.0-0.7); #Monocytes 0.4 thou/uL (0.11-0.59); #Neutrophils 6.6 thou/uL (1.40-6.50); %Basophils 0.2 % (0.0-1.0); %Lymphocytes 15.3 % (21.0-51.0); %Monocytes 5.2 % (0.0-10.0); %Neutrophils 77.1 % (42.0-75.0); Hematocrit 31.5 % (42.0-52.0); Hemoglobin 9.4 g/dL (14.0-18.0); Mean Corpuscular HGB CONC 29.8 g/dL (32.0-36.0); Mean Corpuscular Hemoglobin 27.7 pg (27.0-31.0); Mean Corpuscular Volume 92.9 fl (78.0-98.0); Mean Platelet Volume 9.9 fL (7.4-10.4); Platelet Count 285 10x3/uL (130-400); RBC Distribution Width 15.6 % (11.5-14.5); Red Blood Cell (RBC) Count 3.39 mill/uL (4.70-6.10); White Blood Cell (WBC) Count 8.5 10x3/uL (4.8-10.8)
[2023-06-18] MEDS ORDERED: Iopamidol 30 ML ONE (07:56)
[2023-06-18 07:59] LABS: Iron 24 ug/dL (65-175); Iron Binding Capacity, Total 229 mcg/dL (261-462)
[2023-06-18 08:03] LABS: Anion Gap 18 mmol/L (10-20); BUN (Urea Nitrogen) 31 mg/dL (8.9-20.6); Calc. Creatinine Clearance 40 mL/min (70-130); Calcium 9.5 mg/dL (7.8-10.44); Carbon Dioxide 24 mmol/L (22-29); Chloride 106 mmol/L (98-107); Estimated GFR 14; Glucose 149 mg/dL (70-105); Potassium 4.5 mmol/L (3.5-5.1); Sodium 143 mmol/L (136-145)
[2023-06-18] MEDS: cefTRIAXone\\ROCEPHIN 2 GM in Sodium Chloride 0.9% 100 ML IVPB SCH (08:36)
[2023-06-18] MEDS: Amlodipine 5 MG TAB PO SCH (08:37)
[2023-06-18] MEDS ORDERED: Epoetin (ESRD) 10,000 UNITS/ML VIAL SC SCH (09:30)
[2023-06-18] MEDS ORDERED: fentaNYL PF 100 MCG/2 ML SYRINGE ONE (10:17)
[2023-06-18] MEDS ORDERED: Lidocaine 1% PF 5 ML VIAL ONE ×2 (10:18→10:58)
[2023-06-18] MEDS ORDERED: PROPOFOL 20 ML ONE (10:18)
[2023-06-18] MEDS ORDERED: Succinylcholine 200 MG/10 ml SYRINGE FS ONE ×2 (10:50→10:58)
[2023-06-18] MEDS ORDERED: Rocuronium Bromide 10 MG/ML (10ML VIAL) ONE ×2 (10:50→10:58)
[2023-06-18] MEDS ORDERED: Ondansetron PF 4 MG/2 ML Vial ONE ×2 (10:58→11:28)
[2023-06-18] MEDS ORDERED: PROPOFOL 200 MG/20 ML VIAL ONE (10:58)
[2023-06-18] MEDS ORDERED: PHENYLEPHRINE-NS 100 MCG/ML 10 ML SYRINGE ONE ×2 (10:58→11:06)
[2023-06-18] MEDS ORDERED: diphenhydrAMINE 50 MG/ML VIAL ONE (10:58)
[2023-06-18] MEDS ORDERED: Dexamethasone 20 MG/5 ML VIAL ONE (10:58)
[2023-06-18] MEDS ORDERED: Promethazine HCl 25 MG/ML VIAL IM PRN (11:21)
[2023-06-18] MEDS ORDERED: Ondansetron HCl/PF 4 MG/2 ML Vial IVP PRN (11:21)
[2023-06-18] MEDS ORDERED: SUGAMMADEX SODIUM 200 MG/2 ML VIAL ONE (11:29)
[2023-06-18] MEDS ORDERED: Iron, Sodium Ferric Gluconate 250 MG in Sodium Chloride 0.9% 250 ML 250 ML IVPB SCH (12:00)
[2023-06-18] MEDS ORDERED: EPOETIN ALFA-EPBX (ESRD) 10,000 UNITS/ML VIAL SC SCH (12:00)
[2023-06-18 14:09] LABS: Immunoglob - A (Total IgA) 582 mg/dL (63-484); Immunoglob - G (Total IgG) 2767 mg/dL (540-1822)
[2023-06-18 14:10] LABS: Complement-C3 225 mg/dL (83-185); Complement-C4 51 mg/dL (15-53); Immunoglob - M (Total IgM) 116 mg/dL (22-240)
[2023-06-18] MEDS: Rosuvastatin 20 MG TAB PO SCH (21:26)
[2023-06-18] MEDS: Senokot S 8.6-50 MG TAB PO PRN (21:34)
[2023-06-19] MEDS: HYDROcodone/Acetaminophen 10/325 mg Tablet PO PRN (00:14)
[2023-06-19] MEDS: Sodium Bicarbonate 50 MEQ in Sodium Chloride 0.45% 1,000 ML IV SCH ×3 (02:17→19:56)
[2023-06-19] MEDS ORDERED: Morphine 2 MG/ML VIAL SLOW IVP SCH (03:45)
[2023-06-19 07:08] LABS: #Monocytes 0.4 thou/uL (0.11-0.59); #Neutrophils 10.4 thou/uL (1.40-6.50); %Basophils 0.1 % (0.0-1.0); %Lymphocytes 8.9 % (21.0-51.0); %Monocytes 3.6 % (0.0-10.0); %Neutrophils 86.4 % (42.0-75.0); Hematocrit 31.9 % (42.0-52.0); Hemoglobin 9.3 g/dL (14.0-18.0); Mean Corpuscular HGB CONC 29.2 g/dL (32.0-36.0); Mean Corpuscular Hemoglobin 27.2 pg (27.0-31.0); Mean Corpuscular Volume 93.3 fl (78.0-98.0); Mean Platelet Volume 9.8 fL (7.4-10.4); Platelet Count 331 10x3/uL (130-400); RBC Distribution Width 15.1 % (11.5-14.5); Red Blood Cell (RBC) Count 3.42 mill/uL (4.70-6.10); White Blood Cell (WBC) Count 12.1 10x3/uL (4.8-10.8)
[2023-06-19 07:24] LABS: Anion Gap 16 mmol/L (10-20); BUN (Urea Nitrogen) 41 mg/dL (8.9-20.6); Calc. Creatinine Clearance 42 mL/min (70-130); Calcium 9.4 mg/dL (7.8-10.44); Carbon Dioxide 21 mmol/L (22-29); Chloride 107 mmol/L (98-107); Estimated GFR 15; Glucose 188 mg/dL (70-105); Potassium 5.3 mmol/L (3.5-5.1); Sodium 139 mmol/L (136-145)
[2023-06-19] MEDS: Amlodipine 5 MG TAB PO SCH (08:39)
[2023-06-19] MEDS: cefTRIAXone\\ROCEPHIN 2 GM in Sodium Chloride 0.9% 100 ML IVPB SCH (08:40)
[2023-06-19] MEDS ORDERED: LOKELMA 10 GM PACKET PO SCH (18:30)
[2023-06-19] MEDS: Sodium Bicarbonate Tab 325 MG TAB PO SCH (22:19)
[2023-06-19] MEDS: Rosuvastatin 20 MG TAB PO SCH (22:19)
[2023-06-19] MEDS: Famotidine 20 MG TAB PO SCH (22:19)
[2023-06-20] MEDS: Sodium Bicarbonate 50 MEQ in Sodium Chloride 0.45% 1,000 ML IV SCH (02:46)
[2023-06-20 07:01] LABS: Albumin 3.6 g/dL (3.5-5.0); Anion Gap 13 mmol/L (10-20); BUN (Urea Nitrogen) 39 mg/dL (8.9-20.6); BUN/Creatinine Ratio 10.71; Calc. Creatinine Clearance 53 mL/min (70-130); Carbon Dioxide 26 mmol/L (22-29); Chloride 104 mmol/L (98-107); Estimated GFR 20; Glucose 146 mg/dL (70-105); Phosphorus 4.7 mg/dL (2.3-4.7); Potassium 4.4 mmol/L (3.5-5.1); Sodium 139 mmol/L (136-145)
[2023-06-20] MEDS: Sodium Bicarbonate Tab 325 MG TAB PO SCH ×3 (08:18→20:33)
[2023-06-20] MEDS: Amlodipine 5 MG TAB PO SCH (08:18)
[2023-06-20] MEDS: cefTRIAXone\\ROCEPHIN 2 GM in Sodium Chloride 0.9% 100 ML IVPB SCH (08:19)
[2023-06-20] MEDS: Sodium Chloride 0.9% 1,000 ML IV SCH (15:15)
[2023-06-20] MEDS: Rosuvastatin 20 MG TAB PO SCH (20:33)
[2023-06-21] MEDS: Sodium Chloride 0.9% 1,000 ML IV SCH ×3 (00:54→15:46)
[2023-06-21] MEDS: cefTRIAXone\\ROCEPHIN 2 GM in Sodium Chloride 0.9% 100 ML IVPB SCH (08:10)
[2023-06-21] MEDS: Sodium Bicarbonate Tab 325 MG TAB PO SCH ×3 (08:15→21:51)
[2023-06-21 08:20] LABS: Anion Gap 14 mmol/L (10-20); BUN (Urea Nitrogen) 38 mg/dL (8.9-20.6); Calc. Creatinine Clearance 62 mL/min (70-130); Calcium 8.9 mg/dL (7.8-10.44); Carbon Dioxide 24 mmol/L (22-29); Chloride 104 mmol/L (98-107); Estimated GFR 24; Glucose 174 mg/dL (70-105); Sodium 138 mmol/L (136-145)
[2023-06-21 08:26] LABS: Albumin 3.7 g/dL (3.5-5.0); Anion Gap 14 mmol/L (10-20); BUN (Urea Nitrogen) 38 mg/dL (8.9-20.6); BUN/Creatinine Ratio 12.03; Calc. Creatinine Clearance 61 mL/min (70-130); Calcium 8.8 mg/dL (7.8-10.44); Carbon Dioxide 24 mmol/L (22-29); Chloride 104 mmol/L (98-107); Estimated GFR 23; Glucose 175 mg/dL (70-105); Phosphorus 3.8 mg/dL (2.3-4.7); Sodium 138 mmol/L (136-145)
[2023-06-21] MEDS ORDERED: Iron, Sodium Ferric Gluconate 250 MG in Sodium Chloride 0.9% 250 ML 250 ML IVPB SCH (12:00)
[2023-06-21] MEDS: Rosuvastatin 20 MG TAB PO SCH (21:51)
[2023-06-21] MEDS: Senokot S 8.6-50 MG TAB PO PRN (21:59)
[2023-06-22] MEDS: Sodium Chloride 0.9% 1,000 ML IV SCH ×2 (01:50→07:51)
[2023-06-22] MEDS: Famotidine 20 MG TAB PO SCH (02:30)
[2023-06-22 05:23] LABS: Albumin 3.4 g/dL (3.5-5.0); Anion Gap 14 mmol/L (10-20); BUN (Urea Nitrogen) 32 mg/dL (8.9-20.6); BUN/Creatinine Ratio 12.21; Calc. Creatinine Clearance 73 mL/min (70-130); Calcium 8.8 mg/dL (7.8-10.44); Carbon Dioxide 23 mmol/L (22-29); Chloride 105 mmol/L (98-107); Estimated GFR 29; Glucose 150 mg/dL (70-105); Phosphorus 3.5 mg/dL (2.3-4.7); Potassium 4.2 mmol/L (3.5-5.1); Sodium 138 mmol/L (136-145)
[2023-06-22] MEDS: cefTRIAXone\\ROCEPHIN 2 GM in Sodium Chloride 0.9% 100 ML IVPB SCH (07:50)
[2023-06-22] MEDS: Sodium Bicarbonate Tab 325 MG TAB PO SCH ×3 (08:04→21:13)
[2023-06-22] MEDS: Rosuvastatin 20 MG TAB PO SCH (21:13)
[2023-06-23 05:38] LABS: Albumin 3.8 g/dL (3.5-5.0); Anion Gap 15 mmol/L (10-20); BUN (Urea Nitrogen) 30 mg/dL (8.9-20.6); BUN/Creatinine Ratio 12.82; Calc. Creatinine Clearance 82 mL/min (70-130); Calcium 9.3 mg/dL (7.8-10.44); Carbon Dioxide 25 mmol/L (22-29); Chloride 102 mmol/L (98-107); Estimated GFR 33; Glucose 172 mg/dL (70-105); Phosphorus 3.5 mg/dL (2.3-4.7); Potassium 4.2 mmol/L (3.5-5.1); Sodium 138 mmol/L (136-145)
[2023-06-23 08:08] VITALS: BP 136/68; TEMP 97.7
[2023-06-23] MEDS: cefTRIAXone\\ROCEPHIN 2 GM in Sodium Chloride 0.9% 100 ML IVPB SCH (08:37)
[2023-06-23] MEDS: Sodium Bicarbonate Tab 325 MG TAB PO SCH (08:42)
[2023-06-23] MEDS ORDERED: Iron, Sodium Ferric Gluconate 250 MG in Sodium Chloride 0.9% 250 ML 250 ML IVPB SCH (12:00)
[2023-06-24] MEDS ORDERED: Famotidine 20 MG TAB PO SCH (09:00)
== END 2023-06-23 13:47 | disposition home or self-care (01) | DRG 660 ==
LOC: ERS 17:03 → 2NO 20:28 → MSONC 06-18 15:40
PROVIDERS: ADMIT Student in an Organized Health Care Education/Training Program; ATTEND Internal Medicine
PROC: 0T9330Z Drainage of Right Kidney Pelvis with Drainage Device, Percutaneous Approach (ICD-10-PCS; principal; 2023-06-16)
PROC: 0T788DZ Dilation of Bilateral Ureters with Intraluminal Device, Via Natural or Artificial Opening Endoscopic (ICD-10-PCS; 2023-06-18)
PROC: BT141ZZ Fluoroscopy of Kidneys, Ureters and Bladder using Low Osmolar Contrast (ICD-10-PCS; 2023-06-18)
PROC: 3E033XZ Introduction of Vasopressor into Peripheral Vein, Percutaneous Approach (ICD-10-PCS; 2023-06-18)
DX: N17.9 Acute kidney failure, unspecified (principal); E87.21 Acute metabolic acidosis; Z68.42 Body mass index [BMI] 45.0-49.9, adult; N13.30 Unspecified hydronephrosis; N18.9 Chronic kidney disease, unspecified; I12.9 Hypertensive chronic kidney disease with stage 1 through stage 4 chronic kidney disease, or unspecified chronic kidney disease; M10.9 Gout, unspecified; E87.5 Hyperkalemia; D63.1 Anemia in chronic kidney disease; G47.33 Obstructive sleep apnea (adult) (pediatric); E66.01 Morbid (severe) obesity due to excess calories; E78.5 Hyperlipidemia, unspecified; K66.8 Other specified disorders of peritoneum; Z90.49 Acquired absence of other specified parts of digestive tract; Z91.013 Allergy to seafood; Z79.899 Other long term (current) drug therapy; Z98.890 Other specified postprocedural states; Z79.84 Long term (current) use of oral hypoglycemic drugs
CPT/HCPCS: 36415; 36416; 50433; 74176; 74420; 76942; 80048; 80053; 80069; 81001; 82550; 82570; 82728; 82787; 83540; 83550; 83735; 84100; 84156; 84300; 85025; 85610; 85730; 86160; 87086; 88184; 93005; 94640; 96374; 96375; C1729; C1894; C2617; J0360; J0696; J1100; J1200; J1815; J2272; J2405; J2704; J2916; J3010; J3490; J7050; J7070; J7611; J7999; Q5105; Q9967

== ENCOUNTER 2023-08-24 11:48 | Emergency (ER) | payer BC | END 2023-08-24 13:56 | disposition home or self-care (01) | LOC: ERS 11:48 | DX: Z48.00 Encounter for change or removal of nonsurgical wound dressing (principal); I10 Essential (primary) hypertension; E78.5 Hyperlipidemia, unspecified; E11.9 Type 2 diabetes mellitus without complications; N28.9 Disorder of kidney and ureter, unspecified; Z96.0 Presence of urogenital implants; M72.2 Plantar fascial fibromatosis; G47.30 Sleep apnea, unspecified; M10.9 Gout, unspecified; Z55.6 Problems related to health literacy; Z79.84 Long term (current) use of oral hypoglycemic drugs; Z79.899 Other long term (current) drug therapy | CPT/HCPCS: 99282 ==